=== PATIENT | female | born 1945 | race African-American/Black ===

== ENCOUNTER 2017-12-13 07:15 | Emergency (ER) | payer MEDICARE, MEDICAID ==
[2017-12-13 07:49] LABS: #Basophils 0.1 thou/uL (0.0-0.2); #Lymphocytes 1.9 thou/uL (1.20-3.40); #Monocytes 0.3 thou/uL (0.11-0.59); #Neutrophils 2.8 thou/uL (1.40-6.50); %Basophils 2.8 % (0.0-1.0); %Eosinophils 0.2 % (0.0-10.0); %Lymphocytes 37.4 % (21.0-51.0); %Monocytes 5.6 % (0.0-10.0); Hemoglobin 11.4 g/dL (12.0-16.0); Mean Corpuscular HGB CONC 33.1 g/dL (32.0-36.0); Mean Corpuscular Hemoglobin 30.5 pg (27.0-31.0); Mean Corpuscular Volume 92.3 fl (81.0-99.0); Mean Platelet Volume 8.2 fL (7.4-10.4); Platelet Count 159 thou/uL (130-400); RBC Distribution Width 12.5 % (11.5-14.5); Red Blood Cell (RBC) Count 3.72 mill/uL (4.20-5.40); White Blood Cell (WBC) Count 5.1 thou/uL (4.8-10.8)
--- NOTE | 2017-12-13 08:02 | RAD ---
SINGLE VIEW OF THE CHEST: COMPARISON: 03/15/14. HISTORY: Cough. FINDINGS: Single view of the chest shows a normal sized cardiomediastinal silhouette. There is no evidence of c onsolidation, mass, or pleural effusion. The bones are unremarkable. IMPRESSION: No evidence of acute cardiopulmonary disease. POS: [facility]
[2017-12-13 08:10] LABS: Anion Gap 14 mmol/L (10-20); BUN (Urea Nitrogen) 14 mg/dL (9.8-20.1); CK (CPK) 433 U/L (29-168); Calc. Creatinine Clearance 0 mL/min (70-130); Calcium 8.4 mg/dL (7.8-10.44); Carbon Dioxide 20 mmol/L (23-31); Chloride 105 mmol/L (98-107); Estimated GFR-MDRD 40; Glucose 81 mg/dL (83-110); Lipase 45 U/L (8-78); Potassium 3.9 mmol/L (3.5-5.1); Sodium 135 mmol/L (136-145)
[2017-12-13 08:13] LABS: CKMB 0.9 ng/mL (0-6.6); Troponin I 0.011 ng/mL (< 0.028)
[2017-12-13] MEDS ORDERED: Acetaminophen 500 MG TAB ONE (08:44)
[2017-12-13 09:16] LABS: Bilirubin Moderate (Negative); Blood, Urine Negative (Negative); Clarity CLOUDY (Clear); Glucose, Urine (Dipstick) Negative (Negative); Leukocyte Negative (Negative); Nitrite Negative (Negative); Protein, Urine (Dipstick) 30 mg/dL (Neg-Trace); Specific Gravity, Urine 1.021 (1.002-1.036); Urobilinogen 0.2 mg/dL (0.2-1.0)
[2017-12-13 09:18] LABS: Bacteria/HPF None Seen HPF (None Seen)
[2017-12-13 09:33] LABS: Hyaline Casts/LPF 7-10 HYALINE CAST LPF (0-3 Hyaline); Pathc Cast-AUWi Flag 14.77 (0-2.49); RBC/HPF 0-3 HPF (0-3); Renal Epithelial 0-3 HPF (0-3); Transitional Epithelial 0-3 HPF (0-3)
[2017-12-13 09:34] LABS: Other Casts/LPF 4-6 WBC CASTS LPF (0-3 Hyaline)
== END 2017-12-13 11:55 | disposition home or self-care (01) ==
LOC: ERS 07:15
DX: M79.1 Myalgia (principal); I25.10 Atherosclerotic heart disease of native coronary artery without angina pectoris; E78.5 Hyperlipidemia, unspecified; I10 Essential (primary) hypertension; F17.210 Nicotine dependence, cigarettes, uncomplicated; Z79.899 Other long term (current) drug therapy; Z79.82 Long term (current) use of aspirin
CPT/HCPCS: 36415; 51701; 71045; 80048; 81003; 81015; 82550; 82553; 83690; 84484; 85025; 87086; 93005; 96360; 96361; A4353

== ENCOUNTER 2017-12-19 05:46 | Emergency (ER) | payer MEDICARE, MEDICAID ==
[2017-12-19] MEDS ORDERED: Ketorolac Tromethamine 60 MG/2 ML VIAL ONE (06:15)
== END 2017-12-19 07:29 | disposition home or self-care (01) ==
LOC: ERS 05:46
DX: G89.29 Other chronic pain (principal); M54.2 Cervicalgia; I25.10 Atherosclerotic heart disease of native coronary artery without angina pectoris; E78.5 Hyperlipidemia, unspecified; I10 Essential (primary) hypertension; F17.210 Nicotine dependence, cigarettes, uncomplicated; Z79.82 Long term (current) use of aspirin; Z79.899 Other long term (current) drug therapy
CPT/HCPCS: 96372; J1885

== ENCOUNTER 2018-01-31 08:11 | Emergency (ER) | payer MEDICARE, MEDICAID ==
[2018-01-31] MEDS ORDERED: Morphine 4 MG/ML VIAL ONE ×2 (08:46→10:13)
[2018-01-31] MEDS ORDERED: Ondansetron HCl/PF 4 MG/2 ML Vial ONE ×2 (08:47→10:13)
[2018-01-31 10:09] LABS: #Basophils 0.1 thou/uL (0.0-0.2); #Lymphocytes 2.1 thou/uL (1.20-3.40); #Monocytes 0.4 thou/uL (0.11-0.59); #Neutrophils 5.5 thou/uL (1.40-6.50); %Basophils 0.6 % (0.0-1.0); %Eosinophils 0.2 % (0.0-10.0); %Lymphocytes 25.8 % (21.0-51.0); %Monocytes 4.5 % (0.0-10.0); %Neutrophils 68.8 % (42.0-75.0); Hemoglobin 12.2 g/dL (12.0-16.0); Mean Corpuscular HGB CONC 33.2 g/dL (32.0-36.0); Mean Corpuscular Hemoglobin 30.2 pg (27.0-31.0); Mean Corpuscular Volume 90.8 fl (81.0-99.0); Mean Platelet Volume 8.1 fL (7.4-10.4); Platelet Count 200 thou/uL (130-400); RBC Distribution Width 13.8 % (11.5-14.5); Red Blood Cell (RBC) Count 4.05 mill/uL (4.20-5.40)
[2018-01-31 10:28] LABS: CKMB 0.2 ng/mL (0-6.6)
--- NOTE | 2018-01-31 10:40 | RAD ---
RIGHT SHOULDER: Date: 01/31/18 PROVIDED CLINICAL HISTORY: Right shoulder pain. FINDINGS: Comparison with 10/15/14. Acromioclavicular joint osteoarthrosis is noted. There is no evidence for fracture or other acute oss eous abnormality. Subacromial space appears preserved. Visualized right lung field appears clear. IMPRESSION: Acromioclavicular joint osteoarthrosis. POS: [facility]
[2018-01-31 10:44] LABS: Troponin I Less than 0.010 ng/mL (< 0.028)
[2018-01-31 10:48] LABS: ALT (SGPT) 16 U/L (8-55); AST (SGOT) 33 U/L (5-34); Albumin 4.1 g/dL (3.4-4.8); Alkaline Phosphatase 83 U/L (40-150); Anion Gap 18 mmol/L (10-20); BUN (Urea Nitrogen) 6 mg/dL (9.8-20.1); CK (CPK) 51 U/L (29-168); Calc. Creatinine Clearance 0 mL/min (70-130); Calcium 9.2 mg/dL (7.8-10.44); Carbon Dioxide 22 mmol/L (23-31); Chloride 101 mmol/L (98-107); Estimated GFR-MDRD 64; Globulin 4.1 g/dL (2.4-3.5); Glucose 87 mg/dL (83-110); Potassium 4.1 mmol/L (3.5-5.1); Protein, Total 8.2 g/dL (6.0-8.3); Sodium 137 mmol/L (136-145)
--- NOTE | 2018-01-31 10:53 | RAD ---
PORTABLE CHEST: Date: 01/31/18 CLINICAL HISTORY: Fever. FINDINGS: Comparison with 12/13/17. The cardiac and mediastinal silhouette is within normal limits. No focal consolidation, pleural fluid , or pneumothorax apparent. The supine nature of the examination limits sensitivity for detection of pleural fluid or pneumothorax. IMPRESSION: No evidence for an acute cardiopulmonary process. POS: [facility]
[2018-01-31] MEDS ORDERED: Water For Inject, Bacteriostat 30 ML ONE (11:07)
[2018-01-31] MEDS ORDERED: methylPREDNISolone Sod Succ/PF 125 MG/2 ML VIAL ONE (11:07)
[2018-01-31] MEDS ORDERED: Ketorolac Tromethamine 30 MG/ML VIAL ONE (11:15)
== END 2018-01-31 11:23 | disposition home or self-care (01) ==
LOC: ERS 08:11
DX: M19.011 Primary osteoarthritis, right shoulder (principal); I25.10 Atherosclerotic heart disease of native coronary artery without angina pectoris; E87.5 Hyperkalemia; I25.2 Old myocardial infarction; I10 Essential (primary) hypertension; F17.210 Nicotine dependence, cigarettes, uncomplicated
CPT/HCPCS: 71045; 80053; 82553; 83605; 84484; 85025; 85652; 86140; 87040; 93005; 96361; 96372; 96374; 96375; 99406; J1885; J2270; J2405; J2930

== ENCOUNTER 2018-02-24 13:52 | Emergency (ER) | payer MEDICARE, MEDICAID ==
[2018-02-24 15:01] LABS: #Basophils 0.1 thou/uL (0.0-0.2); #Lymphocytes 1.5 thou/uL (1.20-3.40); #Monocytes 0.4 thou/uL (0.11-0.59); %Basophils 1.9 % (0.0-1.0); %Eosinophils 0.6 % (0.0-10.0); %Monocytes 7.3 % (0.0-10.0); %Neutrophils 60.2 % (42.0-75.0); Hemoglobin 10.2 g/dL (12.0-16.0); Mean Corpuscular HGB CONC 32.2 g/dL (32.0-36.0); Mean Corpuscular Hemoglobin 29.1 pg (27.0-31.0); Mean Corpuscular Volume 90.6 fl (81.0-99.0); Mean Platelet Volume 8.1 fL (7.4-10.4); Platelet Count 307 thou/uL (130-400); RBC Distribution Width 14.4 % (11.5-14.5); Red Blood Cell (RBC) Count 3.52 mill/uL (4.20-5.40)
[2018-02-24 15:07] LABS: Bilirubin Negative (Negative); Blood, Urine Negative (Negative); Clarity CLOUDY (Clear); Glucose, Urine (Dipstick) Negative (Negative); Leukocyte Negative (Negative); Nitrite Negative (Negative); Protein, Urine (Dipstick) Negative (Neg-Trace); Specific Gravity, Urine 1.006 (1.002-1.036); Urobilinogen 0.2 mg/dL (0.2-1.0); pH, Urine 6.5 (5.0-9.0)
[2018-02-24 15:22] LABS: ALT (SGPT) 19 U/L (8-55); AST (SGOT) 38 U/L (5-34); Albumin 3.8 g/dL (3.4-4.8); Alkaline Phosphatase 89 U/L (40-150); Anion Gap 15 mmol/L (10-20); BUN (Urea Nitrogen) 4 mg/dL (9.8-20.1); Calc. Creatinine Clearance 0 mL/min (70-130); Calcium 8.9 mg/dL (7.8-10.44); Carbon Dioxide 24 mmol/L (23-31); Chloride 103 mmol/L (98-107); Estimated GFR-MDRD 77; Globulin 3.7 g/dL (2.4-3.5); Glucose 97 mg/dL (83-110); Lipase 42 U/L (8-78); Potassium 3.8 mmol/L (3.5-5.1); Protein, Total 7.5 g/dL (6.0-8.3); Sodium 138 mmol/L (136-145)
[2018-02-24] MEDS ORDERED: Morphine 4 MG/ML VIAL ONE ×2 (16:40→17:16)
[2018-02-24] MEDS ORDERED: Ondansetron HCl/PF 4 MG/2 ML Vial ONE (16:41)
[2018-02-24 16:54] LABS: CKMB 0.2 ng/mL (0-6.6); Troponin I Less than 0.010 ng/mL (< 0.028)
--- NOTE | 2018-02-26 15:02 | EKG ---
Test Reason : Blood Pressure : / mmHG Vent. Rate : 074 BPM Atrial Rate : 078 BPM P-R Int : 000 ms QRS Dur : 084 ms QT Int : 392 ms P-R-T Axes : 000 -18 026 degrees QTc Int : 435 ms Accelerated Junctional rhythm Septal infarct , age undetermined Abnormal ECG Confirmed by KIMBERLY NIETO ([id number]), commissioning editor CARMENCITA AMOS ([id number]) on 02/26/2018 3:00:45 PM Referred By: Confirmed By:KIMBERLY NIETO
== END 2018-02-24 17:39 | disposition home or self-care (01) ==
LOC: ERS 13:52
DX: M54.2 Cervicalgia (principal); E86.0 Dehydration; M25.512 Pain in left shoulder; M25.511 Pain in right shoulder; E78.5 Hyperlipidemia, unspecified; F17.210 Nicotine dependence, cigarettes, uncomplicated; I10 Essential (primary) hypertension; I25.10 Atherosclerotic heart disease of native coronary artery without angina pectoris; I25.2 Old myocardial infarction; K21.9 Gastro-esophageal reflux disease without esophagitis
CPT/HCPCS: 36415; 80053; 81003; 82553; 83605; 83690; 84484; 85025; 93005; 96372; J2270; J2405

== ENCOUNTER 2018-05-25 18:11 | Observation (INO) | payer MEDICARE, MEDICAID ==
[2018-05-25 19:47] LABS: Bilirubin Small (Negative); Blood, Urine Negative (Negative); Clarity TURBID (Clear); Glucose, Urine (Dipstick) Negative (Negative); Leukocyte Trace (Negative); Nitrite Negative (Negative); Protein, Urine (Dipstick) Trace mg/dL (Neg-Trace); Specific Gravity, Urine 1.017 (1.002-1.036)
[2018-05-25 19:48] LABS: Bacteria/HPF None Seen HPF (None Seen); Pathc Cast-AUWi Flag 1.01 (0-2.49); RBC/HPF 0-3 HPF (0-3)
[2018-05-25 19:51] LABS: #Lymphocytes 1.9 thou/uL (1.20-3.40); #Monocytes 0.3 thou/uL (0.11-0.59); #Neutrophils 3.3 thou/uL (1.40-6.50); %Basophils 0.5 % (0.0-1.0); %Eosinophils 0.7 % (0.0-10.0); %Monocytes 5.3 % (0.0-10.0); %Neutrophils 59.5 % (42.0-75.0); Hemoglobin 10.2 g/dL (12.0-16.0); Mean Corpuscular Hemoglobin 29.2 pg (27.0-31.0); Mean Corpuscular Volume 85.9 fL (78.0-98.0); Mean Platelet Volume 7.5 fL (7.4-10.4); Platelet Count 228 thou/uL (130-400); RBC Distribution Width 15.1 % (11.5-14.5); White Blood Cell (WBC) Count 5.6 thou/uL (4.8-10.8)
[2018-05-25 20:13] LABS: ALT (SGPT) 9 U/L (8-55); AST (SGOT) 25 U/L (5-34); Albumin 3.4 g/dL (3.4-4.8); Alkaline Phosphatase 62 U/L (40-150); Anion Gap 10 mmol/L (10-20); BUN (Urea Nitrogen) 5 mg/dL (9.8-20.1); Bilirubin, Total 0.6 mg/dL (0.2-1.2); CK (CPK) 41 U/L (29-168); Calc. Creatinine Clearance 0 mL/min (70-130); Calcium 8.5 mg/dL (7.8-10.44); Carbon Dioxide 28 mmol/L (23-31); Chloride 102 mmol/L (98-107); Estimated GFR-MDRD 73; Globulin 3.1 g/dL (2.4-3.5); Glucose 92 mg/dL (83-110); Protein, Total 6.5 g/dL (6.0-8.3); Sodium 137 mmol/L (136-145)
[2018-05-25 20:18] LABS: Potassium 2.5 mmol/L (3.5-5.1)
[2018-05-25] MEDS ORDERED: Potassium Bicarbonate/Cit Ac 25 MEQ TAB ONE (20:31)
[2018-05-25] MEDS ORDERED: HYDROcodone/Acetaminophen 5/325 mg Tablet ONE (20:37)
--- NOTE | 2018-05-25 20:37 | RAD ---
CHEST ONE VIEW: HISTORY: Fever. COMPARISON: Chest radiograph from 01/31/2018. FINDINGS: Mild interstitial opacities in both lung bases with a developing alveolar component. Heart size is a t the upper limits of normal. No significant effusion. No pneumothorax. IMPRESSION: Bibasilar air space opacity with concern for a multifocal infectious process. POS: [facility]
[2018-05-25] MEDS ORDERED: Ondansetron HCl/PF 4 MG/2 ML Vial IVP PRN (23:43)
[2018-05-25] MEDS ORDERED: Acetaminophen 325 MG TAB PO PRN (23:43)
[2018-05-25] MEDS ORDERED: Ondansetron ODT 4 MG TAB SL PRN (23:43)
[2018-05-26] VITALS: BMI 23.5
[2018-05-26] MEDS: NS 0.9% w/ 40 MEQ KCL 1,000 ML IV SCH ×3 (00:47→10:34)
--- NOTE | 2018-05-26 06:02 | HP ---
CHIEF COMPLAINT: Left flank pain. HISTORY OF PRESENT ILLNESS: This patient is a 72-year-old female who [facility] of left flank pain. The patient had a mechanical fall that she experience d about 6 days ago. She is not sure why she fell at that time, but she hit the corner of a table in her left posterior rib and flank area. She has had some pain in that area. She reports that she thi nks that she was just getting weaker and to the point she just did not feel good and was too weak to even ambulate with her walker and she felt like she was stumbling. She typically is on a walker claudia use she has some chronic back pain. She denied any other associated problems. PAST MEDICAL HISTORY: Hypertension, chronic back pain, coronary artery disease with pretty significa nt multivessel disease followed by Dr. Levi. Hyperlipidemia. PAST SURGICAL HISTORY: Hysterectomy, , coronary stent. FAMILY HISTORY: Mother of cancer. SOCIAL HISTORY: The patient continues to smoke 1-2 cigarettes per day and has smoked up to a pack a day in the past. She denies alcohol, drugs or being . REVIEW OF SYSTEMS: She has some decreased hearing in the left ear and she reports some decreased tas te sensation. She also reports some loose stools since she has not been feeling well. She does have some urinary urgency and frequency. She also reports some dry skin rash, specifically it is primari ly affecting her hands and was affecting her navel area. She also reports some generalized anxiety. ALLERGIES: PENICILLIN which causes a rash. CURRENT MEDICATIONS: Aspirin 81 mg every day, Dowell 10/325 one p.o. t.i.d. p.r.n., Coreg 3.125 one p .o. b.i.d., atorvastatin 20 mg at bedtime, Protonix 40 mg every day. Lisinopril 10 mg every day, Nor vasc 10 mg p.o. daily. PHYSICAL EXAMINATION: VITAL SIGNS: Temperature 97.6, pulse 66, respirations 18, O2 sat 97% on room air, BP 109/53. GENERAL APPEARANCE: Age appropriate female in no distress. She is awake, alert, oriented, very plea florentino, cooperative. HEENT: PERRL. No OP lesions. NECK: Supple and symmetric. CARDIOVASCULAR: Regular rate and rhythm without murmurs, gallops or rubs. CHEST: Lungs are clear to auscultation bilaterally with good chest wall expansion, air exchange. ABDOMEN: Soft, nontender, nondistended with positive bowel sounds. MUSCULOSKELETAL: Extremities are warm and dry with no edema. She does have some ecchymoses in the l eft flank area about 8 cm. This area is very tender to palpation. LABORATORY DATA: White blood cell count 5.6, hemoglobin 10.2, platelets 228. Sodium 137, potassium 2.5, chloride 102, CO2 is 28, BUN 5, creatinine 0.92, glucose 92. Lactic acid 0.8, calcium 8.5, tota l bilirubin 0.6, AST 25, ALT 9, alkaline phosphatase 62. Urinalysis; small bilirubin, trace leukocyt e esterase, 4-6 white cells, 0-3 red cells. Chest x-ray bibasilar airspace opacities concerning for multifocal infectious process. ASSESSMENT AND PLAN: 1. Hypokalemia. The patient had significant hypokalemia with a potassium of 2.5. She has been rece iving some repletion. We will recheck those promptly. 2. Fall injury with left flank contusion. We will obtain a physical therapy consult. We will get s ome dedicated left rib series x-rays. 3. Possible urinary tract infection. Evidence is fairly equivocal, although she is reporting some u rinary frequency and urgency. Therefore, it sounds like this may be symptomatic. She has been recei ving Levaquin. We will continue that. 4. Abnormal chest x-ray concerning for the possibility of pneumonia. The patient has a negative or a normal white blood cell count and has yet to demonstrate fevers; however, she has been feeling poor ly for the past several days and it is concerning that she may be developing some pneumonia simply fr om not breathing deeply because of the rib injury. Should be covered with Levaquin. We will add inc entive spirometry as well. 5. Disposition: The patient reports that she would like her daughter, Toña Conteh, to be her luís rogate decision maker and she is a [employer]. 6. History of significant coronary artery disease. Continue with the Coreg and aspirin. 7. Hypertension. Continue Norvasc and lisinopril. 8. Hyperlipidemia. Continue the atorvastatin.
[2018-05-26 06:23] LABS: Anion Gap 11 mmol/L (10-20); BUN (Urea Nitrogen) 7 mg/dL (9.8-20.1); Calc. Creatinine Clearance 60 mL/min (70-130); Calcium 8.1 mg/dL (7.8-10.44); Carbon Dioxide 26 mmol/L (23-31); Chloride 105 mmol/L (98-107); Estimated GFR-MDRD 74; Glucose 86 mg/dL (83-110); Potassium 3.8 mmol/L (3.5-5.1); Sodium 138 mmol/L (136-145)
[2018-05-26] MEDS ORDERED: Potassium Chloride 20 MEQ TAB PO SCH (08:00)
[2018-05-26 08:41] LABS: Potassium 4.1 mmol/L (3.5-5.1)
[2018-05-26] MEDS: Carvedilol 3.125 MG TAB PO SCH ×2 (09:22→20:26)
[2018-05-26] MEDS: Amlodipine 10 MG TAB PO SCH (09:23)
[2018-05-26] MEDS: Lisinopril 20 MG TAB PO SCH (09:23)
[2018-05-26] MEDS: Aspirin 81 mg Enteric Coated Tablet PO SCH (09:23)
[2018-05-26] MEDS: HYDROcodone/Acetaminophen 10/325 mg Tablet PO PRN ×2 (11:40→21:03)
[2018-05-26] MEDS ORDERED: Eucerin (Mineral Oil/Petrolatum,White) 30 gm Jar TOP PRN (12:23)
--- NOTE | 2018-05-26 12:28 | PDOC.EVN ---
Event Note - Event Note Event Note: pt seen & examined h&P reviewed pt c/o diarrhea xseveral days and progressive weakness also c/o yellowish coating on tongue which just occurred yesterday c/o generalized prurities on b/l palms of hands and surrounding naval along with some pain where she fell and hit her hip several days ago exam: thrush noted on tongue, no posterior oropharyngeal erythema or exudate b/l dry skin on hands no erythema or changes other than scratches surrounding navel noted 2in by 1in area of bruising over L hip A/P diarrhea check c diff likly etiology of hypokalemia hypokalemia resolved d/c NS w/ K, d/c oral K, recheck in AM, continue to closely monitor pruritis topical skin cream thrush nystatin swish and swallow s/p mechanical fall PT c/s lidocaine patch closely monitor pain and mobility diet: as verónica activity: as above dvt ppx
[2018-05-26] MEDS ORDERED: Lidocaine 5% Patch TD SCH (13:30)
[2018-05-26] MEDS: Nystatin 500,000 UNITS/5 ML UDCUP SSW SCH ×3 (13:35→20:26)
[2018-05-26] MEDS ORDERED: Loperamide HCl 2 MG CAP PO PRN (16:48)
[2018-05-26] MEDS ORDERED: Atorvastatin Calcium 20 MG TAB PO SCH (21:00)
[2018-05-27 04:12] VITALS: TEMP 98.3
[2018-05-27 05:13] LABS: ALT (SGPT) 9 U/L (8-55); AST (SGOT) 22 U/L (5-34); Albumin 3.4 g/dL (3.4-4.8); Alkaline Phosphatase 64 U/L (40-150); Anion Gap 11 mmol/L (10-20); BUN (Urea Nitrogen) 6 mg/dL (9.8-20.1); Bilirubin, Total 0.3 mg/dL (0.2-1.2); Calc. Creatinine Clearance 63 mL/min (70-130); Calcium 8.3 mg/dL (7.8-10.44); Carbon Dioxide 25 mmol/L (23-31); Chloride 108 mmol/L (98-107); Estimated GFR-MDRD 76; Globulin 3.1 g/dL (2.4-3.5); Glucose 85 mg/dL (83-110); Potassium 3.6 mmol/L (3.5-5.1); Protein, Total 6.5 g/dL (6.0-8.3); Sodium 140 mmol/L (136-145)
[2018-05-27 05:14] LABS: Band 1 % (5-11); Eosinophils 3 % (0-10); Hemoglobin 9.8 g/dL (12.0-16.0); Lymphocytes 70 % (21-51); MDiff Complete? YES; Mean Corpuscular HGB CONC 33.6 g/dL (32.0-36.0); Mean Corpuscular Hemoglobin 29.6 pg (27.0-31.0); Mean Corpuscular Volume 88.1 fL (78.0-98.0); Mean Platelet Volume 8.1 fL (7.4-10.4); Monocytes 2 % (0-10); Neutrophil 24 % (42-75); PLT Morphology Comment Appears Adequate; Platelet Count 205 thou/uL (130-400); RBC Distribution Width 15.3 % (11.5-14.5); White Blood Cell (WBC) Count 3.5 thou/uL (4.8-10.8)
[2018-05-27] MEDS: Aspirin 81 mg Enteric Coated Tablet PO SCH (07:36)
[2018-05-27] MEDS: Amlodipine 10 MG TAB PO SCH (07:36)
[2018-05-27] MEDS: Lisinopril 20 MG TAB PO SCH (07:36)
[2018-05-27] MEDS: Carvedilol 3.125 MG TAB PO SCH (07:36)
[2018-05-27] MEDS: Nystatin 500,000 UNITS/5 ML UDCUP SSW SCH (07:37)
[2018-05-27 08:08] VITALS: BP 139/65
[2018-05-27] MEDS ORDERED: Lidocaine 5% Patch TD SCH (09:00)
[2018-05-27] MEDS ORDERED: Lidocaine Patch Removal 1 EACH TOP SCH (21:00)
== END 2018-05-27 12:02 | disposition home or self-care (01) ==
LOC: ERS 18:11 → 2SW 22:09
PROVIDERS: ADMIT Internal Medicine; ATTEND Internal Medicine
DX: R10.9 Unspecified abdominal pain (principal); S30.1XXA Contusion of abdominal wall, initial encounter; I10 Essential (primary) hypertension; G89.29 Other chronic pain; M54.9 Dorsalgia, unspecified; I25.10 Atherosclerotic heart disease of native coronary artery without angina pectoris; E78.5 Hyperlipidemia, unspecified; F17.210 Nicotine dependence, cigarettes, uncomplicated; E87.6 Hypokalemia; B37.0 Candidal stomatitis; Z95.5 Presence of coronary angioplasty implant and graft; Z88.0 Allergy status to penicillin; Z79.82 Long term (current) use of aspirin; Z79.899 Other long term (current) drug therapy; W01.190A Fall on same level from slipping, tripping and stumbling with subsequent striking against furniture, initial encounter
CPT/HCPCS: 71045; 80048; 80053 ×2; 82550; 83605; 84132; 85025 ×2; 87086; 87324; 87449; 93005; 96365; 96366; 97116; 97139 ×3; 99285; G0378; G8978; G8979; G8980; 36415; 81003; 81015; A4216

== ENCOUNTER 2018-06-06 12:06 | Emergency (ER) | payer MEDICARE, MEDICAID ==
[2018-06-06 12:48] LABS: #Basophils 0.1 thou/uL (0.0-0.2); #Eosinphils 0.1 thou/uL (0.0-0.7); #Lymphocytes 2.1 thou/uL (1.20-3.40); #Monocytes 0.3 thou/uL (0.11-0.59); %Basophils 1.2 % (0.0-1.0); %Eosinophils 1.2 % (0.0-10.0); %Lymphocytes 37.9 % (21.0-51.0); %Neutrophils 54.8 % (42.0-75.0); Hemoglobin 12.1 g/dL (12.0-16.0); Mean Corpuscular HGB CONC 33.5 g/dL (32.0-36.0); Mean Corpuscular Hemoglobin 29.2 pg (27.0-31.0); Mean Corpuscular Volume 87.4 fL (78.0-98.0); Mean Platelet Volume 8.5 fL (7.4-10.4); Platelet Count 222 thou/uL (130-400); Red Blood Cell (RBC) Count 4.13 mill/uL (4.20-5.40); White Blood Cell (WBC) Count 5.5 thou/uL (4.8-10.8)
[2018-06-06 12:54] LABS: ALT (SGPT) 10 U/L (8-55); AST (SGOT) 24 U/L (5-34); Alkaline Phosphatase 78 U/L (40-150); Anion Gap 13 mmol/L (10-20); BUN (Urea Nitrogen) 7 mg/dL (9.8-20.1); Bilirubin, Total 0.7 mg/dL (0.2-1.2); Calc. Creatinine Clearance 0 mL/min (70-130); Calcium 9.4 mg/dL (7.8-10.44); Carbon Dioxide 26 mmol/L (23-31); Chloride 106 mmol/L (98-107); Estimated GFR-MDRD 70; Glucose 89 mg/dL (83-110); Magnesium 2.1 mg/dL (1.6-2.6); Potassium 3.3 mmol/L (3.5-5.1); Sodium 142 mmol/L (136-145)
[2018-06-06 12:58] LABS: CKMB 0.2 ng/mL (0-6.6); Troponin I Less than 0.010 ng/mL (< 0.028)
[2018-06-06] MEDS ORDERED: Acetaminophen 500 MG TAB ONE (13:09)
[2018-06-06] MEDS ORDERED: Morphine 4 MG/ML VIAL ONE (13:44)
[2018-06-06] MEDS ORDERED: Potassium Bicarbonate/Cit Ac 25 MEQ TAB PO SCH (13:45)
[2018-06-06] MEDS ORDERED: Ondansetron ODT 4 MG TAB ONE (14:03)
[2018-06-06 14:05] LABS: Bilirubin Small (Negative); Blood, Urine Negative (Negative); Clarity CLOUDY (Clear); Glucose, Urine (Dipstick) Negative (Negative); Leukocyte Trace (Negative); Nitrite Negative (Negative); Protein, Urine (Dipstick) 30 mg/dL (Neg-Trace); Specific Gravity, Urine 1.022 (1.002-1.036)
[2018-06-06 14:07] LABS: Bacteria/HPF None Seen HPF (None Seen); Pathc Cast-AUWi Flag 1.01 (0-2.49)
[2018-06-06 14:17] LABS: Crystals/HPF None Seen HPF (Negative); Other Casts/LPF None Seen LPF (0-3 Hyaline); Oval Fat Bodies/HPF None Seen HPF (None Seen); RBC/HPF 0-3 HPF (0-3); Renal Epithelial None Seen HPF (0-3); Transitional Epithelial NONE SEEN HPF (0-3)
--- NOTE | 2018-06-06 14:29 | CT ---
CHEST CT SCAN WITHOUT IV CONTRAST: Date; 06/06/18 HISTORY: 72-year-old female with history of left lower abdominal rib pain after a fall. FINDINGS: There are scattered bullous emphysema changes, as well as honeycomb pattern bilaterally, evidence for nonspecific chronic interstitial lung disease. No evidence for pleural effusion or pneumothorax. Non displaced fractures of the left 12th and 11th posterior ribs. Visualized upper abdomen is unremarkabl e. Mediastinum is unremarkable with some atherosclerotic changes of the aorta and extensive three ves judith coronary artery calcific changes. There are some borderline enlarged pretracheal nodes up to 0.8 cm short axis. IMPRESSION: Nondisplaced fractures of the left posterior 11th and 12th ribs without pneumothorax or pleural effus ion. Evidence for nonspecific chronic interstitial lung disease with extensive honeycombing bilateral ly. Borderline size paratracheal and pretracheal lymph nodes. Atherosclerosis of the aorta with three vessel coronary artery calcific disease. POS: [facility]
== END 2018-06-06 15:48 | disposition home or self-care (01) ==
LOC: ERS 12:06
DX: S22.32XA Fracture of one rib, left side, initial encounter for closed fracture (principal); I25.2 Old myocardial infarction; E78.5 Hyperlipidemia, unspecified; Z79.891 Long term (current) use of opiate analgesic; Z79.899 Other long term (current) drug therapy; W19.XXXA Unspecified fall, initial encounter
CPT/HCPCS: 71250; 80053; 81003; 81015; 82553; 83735; 84484; 85025; 93005; 96374; J2270; Q0162

== ENCOUNTER 2018-06-08 12:19 | Emergency (ER) | payer MEDICARE, MEDICAID ==
[2018-06-08] MEDS ORDERED: Ketorolac Tromethamine 30 MG/ML VIAL ONE (14:23)
== END 2018-06-08 14:55 | disposition home or self-care (01) ==
LOC: ERS 12:19
DX: S22.42XA Multiple fractures of ribs, left side, initial encounter for closed fracture (principal); K21.9 Gastro-esophageal reflux disease without esophagitis; I10 Essential (primary) hypertension; I25.10 Atherosclerotic heart disease of native coronary artery without angina pectoris; E78.5 Hyperlipidemia, unspecified; I25.2 Old myocardial infarction; G89.29 Other chronic pain; F17.210 Nicotine dependence, cigarettes, uncomplicated; Z79.899 Other long term (current) drug therapy; Z79.82 Long term (current) use of aspirin; W07.XXXA Fall from chair, initial encounter
CPT/HCPCS: 96372; J1885

== ENCOUNTER 2018-06-18 09:01 | Emergency (ER) | payer MEDICARE, MEDICAID ==
[2018-06-18 09:48] LABS: #Basophils 0.1 thou/uL (0.0-0.2); #Lymphocytes 2.1 thou/uL (1.20-3.40); #Monocytes 0.4 thou/uL (0.11-0.59); #Neutrophils 3.2 thou/uL (1.40-6.50); %Basophils 1.3 % (0.0-1.0); %Eosinophils 0.8 % (0.0-10.0); %Lymphocytes 35.4 % (21.0-51.0); %Monocytes 6.7 % (0.0-10.0); %Neutrophils 55.7 % (42.0-75.0); Hemoglobin 11.6 g/dL (12.0-16.0); Mean Corpuscular HGB CONC 33.7 g/dL (32.0-36.0); Mean Platelet Volume 8.4 fL (7.4-10.4); Platelet Count 224 thou/uL (130-400); RBC Distribution Width 15.1 % (11.5-14.5); Red Blood Cell (RBC) Count 3.99 mill/uL (4.20-5.40); White Blood Cell (WBC) Count 5.8 thou/uL (4.8-10.8)
[2018-06-18 10:13] LABS: ALT (SGPT) 11 U/L (8-55); AST (SGOT) 24 U/L (5-34); Albumin 4.1 g/dL (3.4-4.8); Alkaline Phosphatase 81 U/L (40-150); Anion Gap 12 mmol/L (10-20); BUN (Urea Nitrogen) 5 mg/dL (9.8-20.1); Bilirubin, Total 0.6 mg/dL (0.2-1.2); CK (CPK) 40 U/L (29-168); Calc. Creatinine Clearance 0 mL/min (70-130); Carbon Dioxide 26 mmol/L (23-31); Chloride 105 mmol/L (98-107); Estimated GFR-MDRD 74; Globulin 3.9 g/dL (2.4-3.5); Glucose 86 mg/dL (83-110); Lipase 24 U/L (8-78); Potassium 3.3 mmol/L (3.5-5.1); Sodium 140 mmol/L (136-145)
[2018-06-18 10:17] LABS: CKMB 0.2 ng/mL (0-6.6); Troponin I Less than 0.010 ng/mL (< 0.028)
[2018-06-18 11:00] LABS: Bilirubin Negative (Negative); Blood, Urine Negative (Negative); Clarity CLOUDY (Clear); Glucose, Urine (Dipstick) Negative (Negative); Leukocyte Negative (Negative); Nitrite Negative (Negative); Protein, Urine (Dipstick) Negative (Neg-Trace); Urobilinogen 0.2 mg/dL (0.2-1.0)
--- NOTE | 2018-06-18 11:03 | RAD ---
RIGHT HIP 2-3 VIEWS: HISTORY: Right-sided pain. Fall from wheelchair. COMPARISON: None. FINDINGS: No acute fracture or malalignment. The right obturator ring is intact. Femoral head and neck are in normal anatomic alignment. IMPRESSION: No displaced right-sided rib fracture. POS: [facility]
[2018-06-18] MEDS ORDERED: Ketorolac Tromethamine 30 MG/ML VIAL ONE (11:04)
--- NOTE | 2018-06-18 11:06 | RAD ---
RIGHT ANKLE 3 VIEWS: HISTORY: Fall. COMPARISON: None. FINDINGS: There are multiple calcified bodies of the anterior joint space. No acute displaced fracture or mary lignment. Old medial malleolar injury. IMPRESSION: 1. 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 2. No acute displaced fracture or malalignment. 3. Evidence of old medial ankle injury. POS: [facility]
--- NOTE | 2018-06-18 11:22 | RAD ---
RIGHT RIBS 2 VIEWS PA CHEST XRAY: HISTORY: Fall. Right-sided pain. COMPARISON: CT chest 06/06/18. FINDINGS: Left posterior 11th and 12th rib fractures not well delineated on today's exam. No displaced right-s ided rib fracture is appreciated. No pneumothorax or effusion. Right upper quadrant surgical clips. IMPRESSION: 1. No displaced right-sided rib fracture. 2. Clear lungs. POS: [facility]
[2018-06-18] MEDS ORDERED: Dexamethasone 4 mg/ml Vial ONE (11:24)
== END 2018-06-18 11:32 | disposition home or self-care (01) ==
LOC: ERS 09:01
DX: S93.401A Sprain of unspecified ligament of right ankle, initial encounter (principal); S70.01XA Contusion of right hip, initial encounter; S20.211A Contusion of right front wall of thorax, initial encounter; K21.9 Gastro-esophageal reflux disease without esophagitis; E78.5 Hyperlipidemia, unspecified; I25.2 Old myocardial infarction; F17.210 Nicotine dependence, cigarettes, uncomplicated; Z79.82 Long term (current) use of aspirin; Z79.899 Other long term (current) drug therapy; W05.0XXA Fall from non-moving wheelchair, initial encounter
CPT/HCPCS: 72170; 80053; 81003; 82550; 82553; 83690; 84443; 84484; 85025; 93005; 96374; 96375; J1100; J1885

== ENCOUNTER 2018-06-23 12:17 | Emergency (ER) | payer MEDICARE, MEDICAID ==
[2018-06-23] MEDS ORDERED: HYDROcodone/Acetaminophen 10/325 mg Tablet ONE (12:39)
--- NOTE | 2018-06-23 13:31 | RAD ---
RIGHT ANKLE 3 VIEWS: Date: 06/23/18 HISTORY: Patient fell 2 weeks ago. Pain. COMPARISON: 06/18/18. FINDINGS: No significant change. Multiple calcified bodies are again noted. Ankle mortise is intact. No signifi cant soft tissue swelling. No acute fractures. IMPRESSION: 1. Multiple calcified bodies in the anterior joint space due to synovial osteochondromatosis are aga in noted. 2. Remote injury to medial malleolus. POS: [facility]
--- NOTE | 2018-06-23 14:07 | RAD ---
THREE VIEWS RIGHT FOOT: Date: 06-23-18 Comparison: None. History: Right foot pain. FINDINGS: The fourth metatarsal is markedly foreshortened. There is no displaced fracture or evidence of disloc ation seen. There is enthesophyte formation at the insertion of the achilles' tendon. Multiple corticated calcified foci noted along the anterior aspect of the ankle joint on the lateral view suggesting multiple intraarticular loose bodies within the right ankle. No acute fracture or evidence of dislocation seen. 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 No acute fracture or evidence of dislocation seen. POS: [facility]
== END 2018-06-23 13:36 | disposition home or self-care (01) ==
LOC: ERS 12:17
DX: M25.571 Pain in right ankle and joints of right foot (principal); G89.29 Other chronic pain; K21.9 Gastro-esophageal reflux disease without esophagitis; I10 Essential (primary) hypertension; E78.5 Hyperlipidemia, unspecified; I25.2 Old myocardial infarction; F17.210 Nicotine dependence, cigarettes, uncomplicated; Z79.899 Other long term (current) drug therapy

== ENCOUNTER 2018-07-06 01:23 | Emergency (ER) | payer MEDICARE, OTHER ==
[2018-07-06 02:16] LABS: #Basophils 0.1 thou/uL (0.0-0.2); #Eosinphils 0.1 thou/uL (0.0-0.7); #Lymphocytes 2.6 thou/uL (1.20-3.40); #Monocytes 0.4 thou/uL (0.11-0.59); #Neutrophils 4.4 thou/uL (1.40-6.50); %Basophils 0.7 % (0.0-1.0); %Eosinophils 1.6 % (0.0-10.0); %Lymphocytes 34.3 % (21.0-51.0); %Monocytes 5.1 % (0.0-10.0); %Neutrophils 58.3 % (42.0-75.0); Hemoglobin 10.3 g/dL (12.0-16.0); Mean Corpuscular HGB CONC 35.3 g/dL (32.0-36.0); Mean Corpuscular Volume 87.8 fL (78.0-98.0); Mean Platelet Volume 8.4 fL (7.4-10.4); Platelet Count 183 thou/uL (130-400); RBC Distribution Width 15.9 % (11.5-14.5); Red Blood Cell (RBC) Count 3.32 mill/uL (4.20-5.40); White Blood Cell (WBC) Count 7.5 thou/uL (4.8-10.8)
[2018-07-06 02:24] LABS: Bilirubin Negative (Negative); Blood, Urine Negative (Negative); Clarity CLEAR (Clear); Glucose, Urine (Dipstick) Negative (Negative); Leukocyte Negative (Negative); Nitrite Negative (Negative); Protein, Urine (Dipstick) Negative (Neg-Trace); Specific Gravity, Urine 1.005 (1.002-1.036); pH, Urine 7.5 (5.0-9.0)
[2018-07-06 02:36] LABS: ALT (SGPT) 13 U/L (8-55); AST (SGOT) 18 U/L (5-34); Albumin 3.7 g/dL (3.4-4.8); Alkaline Phosphatase 73 U/L (40-150); Anion Gap 14 mmol/L (10-20); BUN (Urea Nitrogen) 11 mg/dL (9.8-20.1); Calc. Creatinine Clearance 0 mL/min (70-130); Calcium 9.1 mg/dL (7.8-10.44); Carbon Dioxide 29 mmol/L (23-31); Chloride 99 mmol/L (98-107); Estimated GFR-MDRD 68; Globulin 3.3 g/dL (2.4-3.5); Glucose 91 mg/dL (83-110); Sodium 139 mmol/L (136-145)
[2018-07-06 02:38] LABS: Potassium 2.9 mmol/L (3.5-5.1)
[2018-07-06] MEDS ORDERED: Potassium Chloride 20 MEQ TAB ONE (03:24)
--- NOTE | 2018-07-06 07:51 | RAD ---
PORTABLE CHEST 1 VIEW: DATE: 07/06/18. TIME: 2:15 a.m. HISTORY: Fever. FINDINGS: The heart size is normal. The lungs are expanded without lobar consolidation, pneumothoraces, or ple ural effusions. IMPRESSION: No acute process. POS: [facility]
--- NOTE | 2018-07-06 07:56 | RAD ---
RADIOGRAPH CHEST 1 VIEW: Date: 07/06/18. Time: 3:55 a.m. HISTORY: A 72-year-old female with fever. TECHNIQUE: This is a lateral view only. COMPARISON: 06/18/18, and the frontal view of 07/06/18 today. FINDINGS: The posterior costophrenic angles are sharp; there is no pleural effusion. No airspace density is id entified. Prominent interstitial markings. No cardiomegaly. IMPRESSION: No acute cardiopulmonary findings. VARUN [] POS: [facility]
== END 2018-07-06 05:43 | disposition home or self-care (01) ==
LOC: ERS 01:23
DX: J18.9 Pneumonia, unspecified organism (principal); E87.6 Hypokalemia; K21.9 Gastro-esophageal reflux disease without esophagitis; E78.5 Hyperlipidemia, unspecified; I10 Essential (primary) hypertension; I25.2 Old myocardial infarction; I25.10 Atherosclerotic heart disease of native coronary artery without angina pectoris; Z79.82 Long term (current) use of aspirin; Z79.899 Other long term (current) drug therapy
CPT/HCPCS: 36415; 71045; 80053; 81003; 83605; 85025

== ENCOUNTER 2018-07-23 01:35 | Emergency (ER) | payer MEDICARE, MEDICAID ==
[2018-07-23 02:20] LABS: Bilirubin Negative (Negative); Blood, Urine Negative (Negative); Clarity CLEAR (Clear); Glucose, Urine (Dipstick) Negative (Negative); Leukocyte Negative (Negative); Nitrite Negative (Negative); Protein, Urine (Dipstick) Negative (Neg-Trace); Specific Gravity, Urine 1.003 (1.002-1.036); Urobilinogen 0.2 mg/dL (0.2-1.0); pH, Urine 6.5 (5.0-9.0)
[2018-07-23 02:35] LABS: #Basophils 0.1 thou/uL (0.0-0.2); #Eosinphils 0.1 thou/uL (0.0-0.7); #Lymphocytes 2.2 thou/uL (1.20-3.40); #Monocytes 0.3 thou/uL (0.11-0.59); #Neutrophils 3.9 thou/uL (1.40-6.50); %Basophils 1.1 % (0.0-1.0); %Eosinophils 1.4 % (0.0-10.0); %Monocytes 4.6 % (0.0-10.0); %Neutrophils 59.8 % (42.0-75.0); Hemoglobin 10.5 g/dL (12.0-16.0); Mean Corpuscular HGB CONC 34.3 g/dL (32.0-36.0); Mean Corpuscular Hemoglobin 29.5 pg (27.0-31.0); Mean Corpuscular Volume 85.9 fL (78.0-98.0); Mean Platelet Volume 8.5 fL (7.4-10.4); Platelet Count 202 thou/uL (130-400); Red Blood Cell (RBC) Count 3.55 mill/uL (4.20-5.40); White Blood Cell (WBC) Count 6.5 thou/uL (4.8-10.8)
[2018-07-23 02:45] LABS: ALT (SGPT) 12 U/L (8-55); AST (SGOT) 24 U/L (5-34); Albumin 3.7 g/dL (3.4-4.8); Alkaline Phosphatase 89 U/L (40-150); Anion Gap 14 mmol/L (10-20); BUN (Urea Nitrogen) 9 mg/dL (9.8-20.1); Bilirubin, Total 0.5 mg/dL (0.2-1.2); Calc. Creatinine Clearance 0 mL/min (70-130); Calcium 8.7 mg/dL (7.8-10.44); Carbon Dioxide 25 mmol/L (23-31); Chloride 108 mmol/L (98-107); Estimated GFR-MDRD 75; Globulin 3.6 g/dL (2.4-3.5); Glucose 96 mg/dL (83-110); Protein, Total 7.3 g/dL (6.0-8.3); Sodium 144 mmol/L (136-145)
[2018-07-23 02:48] LABS: Potassium 2.5 mmol/L (3.5-5.1)
[2018-07-23] MEDS ORDERED: Ketorolac Tromethamine 30 MG/ML VIAL ONE (03:48)
[2018-07-23] MEDS ORDERED: Magnesium Sulfate 2 GM/100 ML BAG ONE (03:48)
[2018-07-23] MEDS ORDERED: Promethazine HCl 25 MG/ML VIAL ONE (03:48)
--- NOTE | 2018-07-23 07:59 | RAD ---
SINGLE VIEW OF THE CHEST: COMPARISON: 05/25/18. HISTORY: Pneumonitis and fever. FINDINGS: Single view of the chest shows a normal sized cardiomediastinal silhouette. There is no evidence of c onsolidation, mass, or pleural effusion. The bones are unremarkable. IMPRESSION: No evidence of acute cardiopulmonary disease. POS: [facility]
--- NOTE | 2018-07-25 19:59 | EKG ---
Test Reason : Blood Pressure : / mmHG Vent. Rate : 068 BPM Atrial Rate : 068 BPM P-R Int : 180 ms QRS Dur : 090 ms QT Int : 416 ms P-R-T Axes : 064 -27 032 degrees QTc Int : 442 ms Normal sinus rhythm Poor R wave progression Abnormal ECG Confirmed by CHEEL LIMON ([id number]), telegraph editor CARMENCITA AMOS ([id number]) on 07/25/2018 7:59:47 PM Referred By: Confirmed By:CHELE LIMON
== END 2018-07-23 04:56 | disposition home or self-care (01) ==
LOC: ERS 01:35
DX: J18.9 Pneumonia, unspecified organism (principal); E87.6 Hypokalemia; J32.9 Chronic sinusitis, unspecified; E78.5 Hyperlipidemia, unspecified; I25.2 Old myocardial infarction; I10 Essential (primary) hypertension; K21.9 Gastro-esophageal reflux disease without esophagitis; I25.10 Atherosclerotic heart disease of native coronary artery without angina pectoris; Z79.899 Other long term (current) drug therapy
CPT/HCPCS: 36415; 71045; 80053; 81003; 83735; 85025; 93005; 96365; 96368; 96375; J1885; J2550; J3475

== ENCOUNTER 2018-10-19 08:18 | Emergency (ER) | payer MEDICARE, MEDICAID ==
[2018-10-19 09:20] LABS: #Eosinphils 0.1 thou/uL (0.0-0.7); #Lymphocytes 2.3 thou/uL (1.20-3.40); #Monocytes 0.3 thou/uL (0.11-0.59); #Neutrophils 2.6 thou/uL (1.40-6.50); %Basophils 0.8 % (0.0-1.0); %Eosinophils 2.7 % (0.0-10.0); %Lymphocytes 42.1 % (21.0-51.0); %Monocytes 5.4 % (0.0-10.0); %Neutrophils 48.9 % (42.0-75.0); Hemoglobin 11.5 g/dL (12.0-16.0); Mean Corpuscular Hemoglobin 29.2 pg (27.0-31.0); Mean Corpuscular Volume 88.3 fL (78.0-98.0); Mean Platelet Volume 8.8 fL (7.4-10.4); Platelet Count 173 thou/uL (130-400); RBC Distribution Width 14.6 % (11.5-14.5); Red Blood Cell (RBC) Count 3.95 mill/uL (4.20-5.40); White Blood Cell (WBC) Count 5.4 thou/uL (4.8-10.8)
[2018-10-19 09:33] LABS: ALT (SGPT) 23 U/L (8-55); AST (SGOT) 32 U/L (5-34); Alkaline Phosphatase 104 U/L (40-150); Anion Gap 12 mmol/L (10-20); BUN (Urea Nitrogen) 7 mg/dL (9.8-20.1); Bilirubin, Total 1.3 mg/dL (0.2-1.2); Calc. Creatinine Clearance 0 mL/min (70-130); Calcium 9.3 mg/dL (7.8-10.44); Carbon Dioxide 30 mmol/L (23-31); Chloride 105 mmol/L (98-107); Estimated GFR-MDRD 82; Globulin 4.1 g/dL (2.4-3.5); Glucose 87 mg/dL (83-110); Lipase 27 U/L (8-78); Protein, Total 8.1 g/dL (6.0-8.3); Sodium 145 mmol/L (136-145)
[2018-10-19 09:37] LABS: Potassium 2.4 mmol/L (3.5-5.1)
[2018-10-19 09:48] LABS: Bilirubin Negative (Negative); Blood, Urine Negative (Negative); Clarity CLEAR (Clear); Glucose, Urine (Dipstick) Negative (Negative); Leukocyte Negative (Negative); Nitrite Negative (Negative); Protein, Urine (Dipstick) Negative (Neg-Trace); pH, Urine 6.5 (5.0-9.0)
[2018-10-19] MEDS ORDERED: Acetaminophen 500 MG TAB ONE (10:06)
== END 2018-10-19 10:14 | disposition home or self-care (01) ==
LOC: ERS 08:18
DX: R32 Unspecified urinary incontinence (principal); G89.29 Other chronic pain; E87.6 Hypokalemia; K21.9 Gastro-esophageal reflux disease without esophagitis; I10 Essential (primary) hypertension; I25.10 Atherosclerotic heart disease of native coronary artery without angina pectoris; E78.5 Hyperlipidemia, unspecified; I25.2 Old myocardial infarction; F17.210 Nicotine dependence, cigarettes, uncomplicated; Z79.82 Long term (current) use of aspirin; Z79.899 Other long term (current) drug therapy
CPT/HCPCS: 36415; 80053; 81003; 83690; 83735; 85025; 99284

== ENCOUNTER 2019-07-07 08:44 | Emergency (ER) | payer MEDICARE, MEDICAID ==
[2019-07-07] MEDS ORDERED: Ketorolac Tromethamine 30 MG/ML VIAL ONE (09:51)
== END 2019-07-07 10:00 | disposition home or self-care (01) ==
LOC: ERS 08:44
DX: M79.675 Pain in left toe(s) (principal); I10 Essential (primary) hypertension; I25.10 Atherosclerotic heart disease of native coronary artery without angina pectoris; E78.5 Hyperlipidemia, unspecified; I25.2 Old myocardial infarction; F17.210 Nicotine dependence, cigarettes, uncomplicated; K21.9 Gastro-esophageal reflux disease without esophagitis; Z79.899 Other long term (current) drug therapy; Z79.82 Long term (current) use of aspirin
CPT/HCPCS: 96372; 99281; J1885

== ENCOUNTER 2019-07-29 10:24 | Outpatient (CLI) | payer MEDICARE, MEDICAID ==
--- NOTE | 2019-07-29 15:45 | HP ---
HISTORY OF PRESENT ILLNESS: Ms. Debra Conteh is a 73-year-old accompanied by a friend who [facility] for evaluation of a wound of the left fifth toe. The patient states that she has had pain of her left fifth toe for approximately 6 months. She states that she had the toenail removed from the left first toe and the resulting wound was slow to heal. She states that another dial marker referred the patient to the [facility] for further evaluation and treatment. She states that the dial marker who removed the toenail from the left great toe, also removed the toenail from the left fifth toe or treated a wound in the region of the nailbed. The patient states she is not sure as to the exact nature of the treatment for her left fifth toe. The patient also received treatment for a wound of the left fifth toe by Dr. Camille Peterson. PAST MEDICAL HISTORY: 1. Coronary artery disease. 2. Hypertension. 3. History of headaches. 4. Chronic back pain. PAST SURGICAL HISTORY: 1. x3. 2. Hysterectomy. MEDICATIONS: 1. Atorvastatin. 2. Pantoprazole. 3. Lisinopril. 4. Amlodipine. 5. Coreg. 6. Potassium. 7. Aspirin. 8. Multivitamin. 9. Hydrocodone. ALLERGIES: PENICILLINS. SOCIAL HISTORY: Social history is significant for tobacco use on an intermittent basis for 10 to 20 years. The patient denies any history of EtOH use. FAMILY HISTORY: Family history is negative for diabetes mellitus or coronary artery disease. PHYSICAL EXAMINATION: VITAL SIGNS: Temperature 97.9, pulse 54, respirations 18, blood pressure 143/67. GENERAL: A 73-year-old female sitting on table in examination room, in mild to moderate distress. HEENT: Normocephalic, atraumatic. NECK: No nuchal rigidity. CHEST: Clear to auscultation. CV: Regular rate and rhythm. ABDOMEN: Soft. EXTREMITIES: No open wound is present over the dorsum of the left fifth toe at the site of her previous wound. No erythema of the left fifth toe is present. No edema of the left fifth toe is present on exam today. A dorsalis pedis pulse is palpable on the left. A posterior tibial pulse is not palpable on the left, but is audible by Doppler. NEURO: Grossly nonfocal. ASSESSMENT AND PLAN: 1. Ulceration of left fifth toe as stated above. This wound has healed completely. The patient reports percutaneous revascularization of the left lower extremity. The patient states she has a followup appointment later this month with Dr. Santoyo. The patient has been reassured that no open wound of the left fifth toe is still present. I have encouraged the patient to keep her followup appointment with Dr. Santoyo. I have explained to the patient that at this time, Dr. Santoyo may arrange for followup with the physician performing her percutaneous revascularization of the left lower extremity. Ms. Conteh will be discharged from clinic today with followup on a p.r.n. basis. 2. Coronary artery disease. 3. Hypertension. 4. History of headaches. 5. Chronic back pain. Job ID: [id number]
== END 2019-07-29 10:25 | disposition home or self-care (01) ==
LOC: WCC 10:24
PROVIDERS: ATTEND Family Medicine
DX: I25.10 Atherosclerotic heart disease of native coronary artery without angina pectoris (principal); I10 Essential (primary) hypertension; G89.29 Other chronic pain; M54.9 Dorsalgia, unspecified; R51 Headache
CPT/HCPCS: 97139; 97602; G0463; 99203

== ENCOUNTER 2019-08-21 10:50 | Emergency (ER) | payer MEDICARE, OTHER ==
[2019-08-21] MEDS ORDERED: Morphine 4 MG/ML VIAL ONE (12:09)
== END 2019-08-21 12:35 | disposition home or self-care (01) ==
LOC: ERS 10:50
DX: M79.675 Pain in left toe(s) (principal); K21.9 Gastro-esophageal reflux disease without esophagitis; F17.210 Nicotine dependence, cigarettes, uncomplicated; E78.5 Hyperlipidemia, unspecified; I10 Essential (primary) hypertension; I25.10 Atherosclerotic heart disease of native coronary artery without angina pectoris; I25.2 Old myocardial infarction; Z79.82 Long term (current) use of aspirin; Z79.899 Other long term (current) drug therapy
CPT/HCPCS: 96372; 99283; J2270

== ENCOUNTER 2019-08-23 08:05 | Emergency (ER) | payer MEDICARE, OTHER ==
[2019-08-23] MEDS ORDERED: HYDROcodone/Acetaminophen 5/325 mg Tablet ONE (09:38)
== END 2019-08-23 09:41 | disposition home or self-care (01) ==
LOC: ERS 08:05
DX: M79.675 Pain in left toe(s) (principal); G89.29 Other chronic pain; F17.210 Nicotine dependence, cigarettes, uncomplicated; E78.5 Hyperlipidemia, unspecified; K21.9 Gastro-esophageal reflux disease without esophagitis; I10 Essential (primary) hypertension; I25.2 Old myocardial infarction
CPT/HCPCS: 99283

== ENCOUNTER 2019-08-25 05:36 | Inpatient (IN) | payer MEDICARE, MEDICAID ==
[2019-08-25] MEDS ORDERED: Lidocaine 1% (PF) 30 ML VIAL ONE (06:31)
[2019-08-25 07:07] LABS: Hemoglobin 12.9 g/dL (12.0-16.0); Mean Corpuscular HGB CONC 34.7 g/dL (32.0-36.0); Mean Corpuscular Hemoglobin 31.7 pg (27.0-31.0); Mean Corpuscular Volume 91.4 fL (78.0-98.0); Mean Platelet Volume 8.5 fL (7.4-10.4); Platelet Count 183 thou/uL (130-400); RBC Distribution Width 12.2 % (11.5-14.5); Red Blood Cell (RBC) Count 4.06 mill/uL (4.20-5.40); White Blood Cell (WBC) Count 6.9 thou/uL (4.8-10.8)
[2019-08-25 07:21] LABS: Anion Gap 15 mmol/L (10-20); BUN (Urea Nitrogen) 12 mg/dL (9.8-20.1); Calc. Creatinine Clearance 0 mL/min (70-130); Calcium 9.7 mg/dL (7.8-10.44); Carbon Dioxide 22 mmol/L (23-31); Chloride 106 mmol/L (98-107); Estimated GFR-MDRD 53; Glucose 85 mg/dL (83-110); Potassium 4.5 mmol/L (3.5-5.1); Sodium 138 mmol/L (136-145)
[2019-08-25] MEDS ORDERED: Fentanyl 100 MCG/2 ML VIAL ONE ×2 (07:22→09:22)
[2019-08-25] MEDS ORDERED: Midazolam HCl 2 mg/2 ml Vial ONE (07:22)
[2019-08-25 07:41] LABS: Band 1 % (5-11); Eosinophils 4 % (0-10); Lymphocytes 58 % (21-51); MDiff Complete? YES; Monocytes 4 % (0-10); Neutrophil 31 % (42-75); Platelet Morphology Comment Appears Adequate; Polychromasia SLIGHT = 2-3 cells (100X) (0-2/hpf)
[2019-08-25] MEDS ORDERED: Heparin 10,000 UNITS/1 ML VIAL ONE (08:18)
[2019-08-25] MEDS ORDERED: Clopidogrel Bisulfate 75 MG TAB ONE (08:28)
[2019-08-25] MEDS ORDERED: Protamine Sulfate 50 MG/5 ML VIAL ONE (08:45)
[2019-08-25] MEDS ORDERED: HYDROcodone/Acetaminophen 5/325 mg Tablet ONE ×2 (12:56→17:40)
[2019-08-25] MEDS ORDERED: Acetaminophen 325 MG TAB PO PRN (19:45)
[2019-08-25] MEDS ORDERED: Ondansetron PF 4 MG/2 ML Vial IVP PRN (19:45)
[2019-08-25] MEDS ORDERED: HYDROcodone/Acetaminophen 5/325 mg Tablet PO PRN (19:45)
[2019-08-25] MEDS ORDERED: Iopamidol 370 76% 50 ML VIAL FS ONE (20:21)
[2019-08-25] MEDS: Atorvastatin Calcium 20 MG TAB PO SCH (20:53)
[2019-08-25] MEDS: Carvedilol 3.125 MG TAB PO SCH (20:53)
[2019-08-25] MEDS: HYDROcodone/Acetaminophen 5/325 mg Tablet PO PRN (22:11)
[2019-08-26 02:08] VITALS: BMI 25.0
[2019-08-26] MEDS: HYDROcodone/Acetaminophen 5/325 mg Tablet PO PRN ×3 (05:24→23:36)
[2019-08-26] MEDS ORDERED: Amlodipine 10 MG TAB PO SCH (09:00)
[2019-08-26] MEDS ORDERED: Bupivacaine HCl 0.5%/Epinephrine 1:200,000/PF 30 ml Vial ONE (09:06)
[2019-08-26] MEDS ORDERED: Ropivacaine 0.5% HCl/PF (150 MG/30 ML VIAL) ONE (09:43)
[2019-08-26] MEDS ORDERED: Midazolam HCl 2 mg/2 ml Vial ONE (10:01)
--- NOTE | 2019-08-26 10:03 | OP ---
DATE OF PROCEDURE: 08/25/2019 PREOPERATIVE DIAGNOSIS: Gangrene, left 5th toe. PROCEDURE PERFORMED: Aortoiliac and left lower extremity runoff with balloon angioplasty and subsequent placement of a synergy 3.5 x 16 mm stent, left popliteal artery. FINDINGS: The patient had extensive atherosclerotic calcifications in the aortoiliac segments with no limiting flow on the left leg. The patient did have some disease in the right external iliac artery , proximal right common femoral artery junction of 60%. The left common femoral artery was patent. The left superficial femoral artery was widely patent with some [id number] areas of narrowing. The left popliteal artery was critically stenotic in the 90% range just proximal to the knee joint with single-vessel runoff via the peroneal artery to the ankle with anterior and posterior artery, tibial arteries not visualizing on the left. no stenosis remained at site of stent placement in the popliteal artery. DESCRIPTION OF PROCEDURE: After ultrasound-guided puncture of the right common femoral artery, wire and a 5-Azeri sheath were advanced. Following this, angiography obtained and the combination of a Contra catheter, Glidewire and a Bentson wire were used to direct the Contra catheter into the left common femoral artery where runoff was obtained. Following this, using a Bentson wire, the sheaths were exchanged for a 5-Azeri long destination 45 cm sheath. A Luge wire was advanced through the stenosis with the help of a [place] catheter. Following which, a 3 x 40 balloon was used to inflate x2 for 2 minutes each. With residual disease , it was elected to place a 3.5 x 16 mm drug coated synergy stent. Following completion of this, there was excellent flow through this area with no residual stenosis and heparin was partially reversed and wires were removed. Job ID: [id number] [facility]
[2019-08-26] MEDS ORDERED: ePHEDrine 50 MG/ML VIAL ONE (10:05)
[2019-08-26] MEDS ORDERED: Clindamycin/D5W 900 mg/50 ml Premix Bag ONE (10:19)
[2019-08-26] MEDS ORDERED: Levofloxacin 500 mg/D5W 100 ml Premix Bag ONE (10:19)
[2019-08-26] MEDS ORDERED: Fentanyl 100 MCG/2 ML VIAL ONE (11:28)
[2019-08-26] MEDS ORDERED: Ibuprofen 800 MG TAB PO SCH (12:10)
--- NOTE | 2019-08-26 13:03 | OP ---
DATE OF PROCEDURE: 08/26/2019 PREOPERATIVE DIAGNOSIS: Painful ischemic left fifth toe. POSTOPERATIVE DIAGNOSIS: Painful ischemic left fifth toe. PROCEDURE PERFORMED: Amputation, left fifth toe. ANESTHESIA: General. DESCRIPTION OF PROCEDURE: After prepping and draping, circumferential incision was made around the base of the toe. It was transected sharply and bone debrided with a rongeur. Bleeding appeared adequate. Tissues were clean, and wound was then reapproximated with interrupted nylon sutures. The patient tolerated the procedure well. Job ID: [id number]
[2019-08-26] MEDS: Enoxaparin Sodium 30 MG/0.3 ML SYRINGE SC SCH (15:25)
[2019-08-26] MEDS: Carvedilol 3.125 MG TAB PO SCH ×2 (15:30→21:05)
[2019-08-26] MEDS: Aspirin 81 mg Enteric Coated Tablet PO SCH (15:30)
[2019-08-26] MEDS: Clopidogrel Bisulfate 75 MG TAB PO SCH (15:30)
[2019-08-26] MEDS: Multivitamin W/ Minerals 1 TAB PO SCH (15:30)
[2019-08-26] MEDS: Ibuprofen 200 MG TAB PO SCH ×2 (15:31→21:05)
[2019-08-26] MEDS: Lisinopril 20 MG TAB PO SCH (17:05)
[2019-08-26] MEDS: Amlodipine 5 MG TAB PO SCH (17:05)
[2019-08-26] MEDS: Atorvastatin Calcium 20 MG TAB PO SCH (21:05)
[2019-08-27] MEDS: HYDROcodone/Acetaminophen 5/325 mg Tablet PO PRN (04:16)
[2019-08-27] MEDS: Ibuprofen 200 MG TAB PO SCH (05:31)
[2019-08-27 07:36] VITALS: BP 118/52; TEMP 97.9
[2019-08-27] MEDS: Multivitamin W/ Minerals 1 TAB PO SCH (08:47)
[2019-08-27] MEDS: Clopidogrel Bisulfate 75 MG TAB PO SCH (08:47)
[2019-08-27] MEDS: Enoxaparin Sodium 30 MG/0.3 ML SYRINGE SC SCH (08:48)
[2019-08-27] MEDS: Aspirin 81 mg Enteric Coated Tablet PO SCH (08:48)
[2019-08-27] MEDS: Amlodipine 5 MG TAB PO SCH (08:51)
[2019-08-27] MEDS: Carvedilol 3.125 MG TAB PO SCH (08:52)
[2019-08-27] MEDS: Lisinopril 20 MG TAB PO SCH (08:52)
--- NOTE | 2019-08-27 14:35 | DIS ---
DATE OF ADMISSION: 08/25/2019 DATE OF DISCHARGE: 08/27/2019 HOSPITAL COURSE: The patient was brought to the hospital for angiography, where she was found to have a subtotal occlusion of her popliteal artery on the left, which was opened with a Synergy 3.5 mm stent. She was begun on Plavix. Due to persistent toe pain with some gangrenous changes, she was taken to the operating room the following morning, where she underwent a left 5th toe amputation. She will be discharged home today to resume her home medicines, although I have decreased her amlodipine from 10 to 5 mg. She will receive a prescription for Plavix and [place]. Discharge and followup instructions have been given. Job ID: [id number]
== END 2019-08-27 10:30 | disposition home or self-care (01) | DRG 253 ==
LOC: CCL 05:36 → SURG B 18:58
PROVIDERS: ADMIT Thoracic Surgery (Cardiothoracic Vascular Surgery); ATTEND Thoracic Surgery (Cardiothoracic Vascular Surgery)
PROC: 047N34Z Dilation of Left Popliteal Artery with Drug-eluting Intraluminal Device, Percutaneous Approach (ICD-10-PCS; 2019-08-25)
PROC: 0Y6Y0Z0 Detachment at Left 5th Toe, Complete, Open Approach (ICD-10-PCS; principal; 2019-08-26)
DX: I70.213 Atherosclerosis of native arteries of extremities with intermittent claudication, bilateral legs (principal); I70.262 Atherosclerosis of native arteries of extremities with gangrene, left leg; G89.29 Other chronic pain; F17.210 Nicotine dependence, cigarettes, uncomplicated; E78.5 Hyperlipidemia, unspecified; K21.9 Gastro-esophageal reflux disease without esophagitis; I10 Essential (primary) hypertension; I25.2 Old myocardial infarction
CPT/HCPCS: 36415; 37226; 75710; 76942; 80048; 85025; 85347; 88305; 88311; 99152; 99153; 99283; C1769; C1874; C1887; J0670; J1644; J1650; J1956; J2001; J2250; J2720; J3010; J3490; Q9967

== ENCOUNTER 2019-12-16 08:28 | Outpatient (CLI) | payer MEDICARE, MEDICAID ==
--- NOTE | 2019-12-16 10:44 | MMO ---
Bilateral MAMMO Bilat Screen [facility]. CLINICAL HISTORY: Patient is 73 years old and is seen for screening. The patient has no family history of breast cancer. The patient has no personal history of cancer. VIEWS: The views performed were: bilateral craniocaudal with tomosynthesis and bilateral mediolateral oblique with tomosynthesis. FILMS COMPARED: The present examination has been compared to prior imaging studies performed at [facility] on 12/24/2013, 12/28/2014 and 01/31/2016, and at [facility] on 10/10/2011. This study has been interpreted with the assistance of computer-aided detection. MAMMOGRAM FINDINGS: There are scattered fibroglandular densities. There are stable benign appearing calcifications seen in both breasts. There are no suspicious masses, suspicious calcifications, or new areas of architectural distortion. IMPRESSION: THERE IS NO MAMMOGRAPHIC EVIDENCE OF MALIGNANCY. A ROUTINE FOLLOW-UP MAMMOGRAM IN 1 YEAR IS RECOMMENDED. THE RESULTS OF THIS EXAM WERE SENT TO THE PATIENT. ACR BI-RADS Category 2 - Benign finding MAMMOGRAPHY NOTE: 1. A negative mammogram report should not delay a biopsy if a dominant of clinically suspicious mass is present. 2. Approximately 10% to 15% of breast cancers are not detected by mammography. 3. Adenosis and dense breasts may obscure an underlying neoplasm. Reported by: LORETTA CORMIER MD Electonically Signed: [id number]
== END 2019-12-16 08:29 | disposition home or self-care (01) ==
LOC: BICMAMMO 08:28
PROVIDERS: ATTEND Family Medicine
DX: Z12.31 Encounter for screening mammogram for malignant neoplasm of breast (principal)
CPT/HCPCS: 77063; 77067

== ENCOUNTER 2020-08-05 14:27 | Emergency (ER) | payer MEDICARE, OTHER ==
[2020-08-05] MEDS ORDERED: Iopamidol-370 76% 500 ML 1 ML ONE (14:43)
[2020-08-05 15:01] LABS: Bacteria/HPF None Seen HPF (None Seen); Bilirubin Negative (Negative); Blood, Urine Negative (Negative); Clarity Clear (Clear); Glucose, Urine (Dipstick) Normal (Negative); Ketone, Urine Negative (Negative); Leukocyte 250 Leu/uL (Negative); Nitrite Negative (Negative); Protein, Urine (Dipstick) Negative (Neg-Trace); RBC/HPF 0-3 HPF (0-3); Specific Gravity, Urine 1.004 (1.002-1.036); Squamous Epithelial 0-3 HPF (0-3); Urobilinogen Normal mg/dL (Less than 2); pH, Urine 6.5 (5.0-9.0)
[2020-08-05] MEDS ORDERED: Ondansetron PF 4 MG/2 ML Vial ONE (15:26)
[2020-08-05 16:34] LABS: Hemoglobin 14.9 g/dL (12.0-16.0); Mean Corpuscular HGB CONC 32.7 g/dL (32.0-36.0); Mean Corpuscular Volume 98.1 fL (78.0-98.0); Mean Platelet Volume 8.8 fL (7.4-10.4); Platelet Count 192 thou/uL (130-400); RBC Distribution Width 13.2 % (11.5-14.5); Red Blood Cell (RBC) Count 4.64 mill/uL (4.20-5.40); White Blood Cell (WBC) Count 6.6 thou/uL (4.8-10.8)
[2020-08-05 16:54] LABS: Band 6 % (5-11); Lymphocytes 66 % (21-51); MDiff Complete? YES; Monocytes 3 % (0-10); Platelet Morphology Comment Appears Adequate; Polychromasia SLIGHT = 2-3 cells (100X) (0-2/hpf)
[2020-08-05 18:15] LABS: ALT (SGPT) 12 U/L (8-55); AST (SGOT) 25 U/L (5-34); Albumin 4.2 g/dL (3.4-4.8); Alkaline Phosphatase 87 U/L (40-110); Anion Gap 14 mmol/L (10-20); BUN (Urea Nitrogen) 14 mg/dL (9.8-20.1); Bilirubin, Total 0.5 mg/dL (0.2-1.2); Calc. Creatinine Clearance 0 mL/min (70-130); Calcium 9.2 mg/dL (7.8-10.44); Carbon Dioxide 21 mmol/L (23-31); Chloride 110 mmol/L (98-107); Estimated GFR-MDRD 62; Globulin 3.7 g/dL (2.4-3.5); Glucose 90 mg/dL (83-110); Lipase 57 U/L (8-78); Potassium 4.1 mmol/L (3.5-5.1); Protein, Total 7.9 g/dL (6.0-8.3); Sodium 141 mmol/L (136-145)
--- NOTE | 2020-08-05 19:31 | CT ---
CT ABDOMEN AND PELVIS WITH IV CONTRAST: 08/05/20 INDICATIONS: Abdominal pain. Nausea and vomiting. FINDINGS: The lung bases are clear. The liver, spleen and pancreas appear unremarkable. Stomach and duodenum unremarkable. Adrenal glands normal. Kidneys unremarkable. Small bowel loops are normal caliber. Appendix not identified. The colon is nondistended and not well evaluated. I cannot exclude mild mural thickening. Aorta is calcified without aneurysm. Images through the pelvis show evidence of hysterectomy. The urinary bladder is mildly distended. The re is mild urinary bladder wall thickening. Scattered diverticula in the sigmoid colon. No free fluid or adenopathy. Osseous structures unremarkable. IMPRESSION: No acute intra-abdominal process identified. POS: [facility]
[2020-08-08 12:53] LABS: Neutrophil 25 % (42-75)
== END 2020-08-05 19:48 | disposition home or self-care (01) ==
LOC: ERS 14:27
DX: R10.9 Unspecified abdominal pain (principal); R19.7 Diarrhea, unspecified; K21.9 Gastro-esophageal reflux disease without esophagitis; I10 Essential (primary) hypertension; E78.5 Hyperlipidemia, unspecified; I25.10 Atherosclerotic heart disease of native coronary artery without angina pectoris; I25.2 Old myocardial infarction; F17.210 Nicotine dependence, cigarettes, uncomplicated
CPT/HCPCS: 36415; 74177; 80053; 81003; 81015; 83690; 85025; 96361; 96372; 96374; J0500; J2405; Q9967

== ENCOUNTER 2021-04-05 08:17 | Inpatient (IN) | payer MEDICARE, MEDICAID ==
[2021-04-05] MEDS ORDERED: Acetaminophen 500 MG TAB ONE (09:24)
[2021-04-05] MEDS ORDERED: Ketorolac Tromethamine 30 MG/ML VIAL ONE (09:24)
[2021-04-05 09:30] LABS: #Basophils 0.1 thou/uL (0.0-0.2); #Eosinphils 0.2 thou/uL (0.0-0.7); #Lymphocytes 3.2 thou/uL (1.20-3.40); #Monocytes 0.6 thou/uL (0.11-0.59); #Neutrophils 6.6 thou/uL (1.40-6.50); %Basophils 0.6 % (0.0-1.0); %Eosinophils 1.9 % (0.0-10.0); %Monocytes 5.7 % (0.0-10.0); %Neutrophils 61.8 % (42.0-75.0); Hemoglobin 13.6 g/dL (12.0-16.0); Mean Corpuscular HGB CONC 33.8 g/dL (32.0-36.0); Mean Corpuscular Hemoglobin 31.7 pg (27.0-31.0); Mean Corpuscular Volume 93.7 fL (78.0-98.0); Mean Platelet Volume 8.1 fL (7.4-10.4); Platelet Count 206 thou/uL (130-400); RBC Distribution Width 12.9 % (11.5-14.5); White Blood Cell (WBC) Count 10.7 thou/uL (4.8-10.8)
[2021-04-05 09:51] LABS: ALT (SGPT) 16 U/L (8-55); AST (SGOT) 24 U/L (5-34); Albumin 4.2 g/dL (3.4-4.8); Alkaline Phosphatase 100 U/L (40-110); Anion Gap 15 mmol/L (10-20); BUN (Urea Nitrogen) 11 mg/dL (9.8-20.1); Bilirubin, Total 0.8 mg/dL (0.2-1.2); Calc. Creatinine Clearance 0 mL/min (70-130); Calcium 9.3 mg/dL (7.8-10.44); Carbon Dioxide 22 mmol/L (23-31); Chloride 106 mmol/L (98-107); Globulin 4.1 g/dL (2.4-3.5); Glucose 93 mg/dL (83-110); Potassium 4.1 mmol/L (3.5-5.1); Protein, Total 8.3 g/dL (5.8-8.1); Sodium 139 mmol/L (136-145)
[2021-04-05] MEDS ORDERED: Cefepime 2 GM VIAL ONE (10:24)
[2021-04-05] MEDS ORDERED: Vancomycin 1.5 GRAM/300 ML BAG 1.5 GM in Premix Bag 1 BAG IVPB SCH (10:45)
[2021-04-05] MEDS ORDERED: Lidocaine 1% PF 5 ML VIAL ONE (11:53)
[2021-04-05 13:28] LABS: RBC Count-Automated (BF) 949 /cu.mm; WBC/Nucleated-Auto (BF) 14574 uL
[2021-04-05 13:30] LABS: BF Color Yellow; Body Fluid Source Synovial Fluid; Clarity Cloudy/Turbid (Clear); Tube # CUP
[2021-04-05 13:32] LABS: Lymphocytes 2 %
[2021-04-05 13:33] LABS: BF Segmented Neutrophils 91 %; Cell Count Non Hematic 7 %
[2021-04-05] MEDS: Nicotine 14 MG PATCH TD SCH (14:51)
[2021-04-05] MEDS: HYDROcodone/Acetaminophen 10/325 mg Tablet PO PRN ×2 (14:59→19:04)
[2021-04-05 16:00] VITALS: BMI 24.2
[2021-04-05 18:34] LABS: Amphetamine Not Detected (NotDetected); Cocaine Metabolite Screen Not Detected (NotDetected); Medtox Reader # READER 4; Methamphetamine Not Detected (NotDetected); Opiate Screen Not Detected (NotDetected); Phencyclidine (PCP) Not Detected (NotDetected); THC/Cannabinoid Screen Not Detected (NotDetected)
[2021-04-05 18:35] LABS: Barbiturates Screen Not Detected (NotDetected); Benzodiazepine Screen Not Detected (NotDetected); Medtox Control Line Valid? VALID (VALID); Methadone Not Detected (NotDetected); Oxycodone Screen Not Detected (NotDetected); Tricyclic Screen Not Detected (NotDetected)
[2021-04-05 18:50] LABS: SARS-CoV-2 PCR by NAA Not Detected (NotDetected)
[2021-04-05] MEDS: Atorvastatin Calcium 20 MG TAB PO SCH (20:24)
[2021-04-05] MEDS: Carvedilol 3.125 MG TAB PO SCH (20:24)
[2021-04-05] MEDS: Cefepime 2 GM in Sodium Chloride 0.9% 100 ML IVPB SCH (21:03)
[2021-04-06] MEDS: HYDROcodone/Acetaminophen 10/325 mg Tablet PO PRN ×2 (02:19→21:24)
[2021-04-06 05:58] LABS: Anion Gap 14 mmol/L (10-20); BUN (Urea Nitrogen) 17 mg/dL (9.8-20.1); Calc. Creatinine Clearance 50 mL/min (70-130); Carbon Dioxide 19 mmol/L (23-31); Chloride 109 mmol/L (98-107); Glucose 105 mg/dL (83-110); Potassium 3.9 mmol/L (3.5-5.1); Sodium 138 mmol/L (136-145)
[2021-04-06 06:08] LABS: Band 2 % (5-11); Lymphocytes 37 % (21-51); MDiff Complete? YES; Mean Corpuscular HGB CONC 34.5 g/dL (32.0-36.0); Mean Corpuscular Hemoglobin 32.4 pg (27.0-31.0); Mean Platelet Volume 8.1 fL (7.4-10.4); Monocytes 6 % (0-10); Neutrophil 55 % (42-75); Platelet Count 172 thou/uL (130-400); Platelet Morphology Comment Appears Adequate; RBC Distribution Width 12.8 % (11.5-14.5); RBC Morphology Normal; Red Blood Cell (RBC) Count 3.71 mill/uL (4.20-5.40); White Blood Cell (WBC) Count 7.6 thou/uL (4.8-10.8)
[2021-04-06] MEDS: MULTIVIT/IRON SULF/FOLIC ACID 1 EACH TAB PO SCH (08:12)
[2021-04-06] MEDS: Carvedilol 3.125 MG TAB PO SCH ×2 (08:13→21:23)
[2021-04-06] MEDS: Aspirin 81 mg Enteric Coated Tablet PO SCH ×3 (08:13→09:25)
[2021-04-06] MEDS: Amlodipine 5 MG TAB PO SCH (08:13)
[2021-04-06] MEDS: Clopidogrel Bisulfate 75 MG TAB PO SCH ×3 (08:14→09:25)
[2021-04-06] MEDS: Enoxaparin Sodium 40 MG/0.4 ML SYRINGE SC SCH (08:14)
[2021-04-06] MEDS: Lisinopril 10 MG TAB PO SCH (08:15)
[2021-04-06] MEDS: Cefepime 2 GM in Sodium Chloride 0.9% 100 ML IVPB SCH ×2 (09:25→21:23)
[2021-04-06] MEDS ORDERED: VANCOMYCIN 1.25 GM/250 ML BAG 1.25 GM in Premix Bag 1 BAG IVPB SCH (12:00)
[2021-04-06] MEDS: Nicotine 14 MG PATCH TD SCH (14:21)
[2021-04-06] MEDS: Atorvastatin Calcium 20 MG TAB PO SCH (21:23)
[2021-04-07 05:56] LABS: Hemoglobin 11.9 g/dL (12.0-16.0); Mean Corpuscular HGB CONC 33.2 g/dL (32.0-36.0); Mean Corpuscular Hemoglobin 30.9 pg (27.0-31.0); Mean Platelet Volume 8.1 fL (7.4-10.4); Platelet Count 189 thou/uL (130-400); RBC Distribution Width 12.7 % (11.5-14.5); Red Blood Cell (RBC) Count 3.86 mill/uL (4.20-5.40); White Blood Cell (WBC) Count 6.7 thou/uL (4.8-10.8)
[2021-04-07 06:11] LABS: Anion Gap 11 mmol/L (10-20); BUN (Urea Nitrogen) 16 mg/dL (9.8-20.1); Calc. Creatinine Clearance 51 mL/min (70-130); Calcium 9.1 mg/dL (7.8-10.44); Carbon Dioxide 20 mmol/L (23-31); Chloride 112 mmol/L (98-107); Glucose 99 mg/dL (83-110); Potassium 4.2 mmol/L (3.5-5.1); Sodium 139 mmol/L (136-145)
[2021-04-07 06:29] LABS: Eosinophils 3 % (0-10); Lymphocytes 55 % (21-51); MDiff Complete? YES; Metamyelocyte 2 % (0-0); Monocytes 4 % (0-10); Neutrophil 36 % (42-75); Platelet Morphology Comment Appears Adequate
[2021-04-07] MEDS: Carvedilol 3.125 MG TAB PO SCH (08:14)
[2021-04-07] MEDS: Amlodipine 5 MG TAB PO SCH (08:14)
[2021-04-07] MEDS: MULTIVIT/IRON SULF/FOLIC ACID 1 EACH TAB PO SCH (08:14)
[2021-04-07] MEDS: Lisinopril 10 MG TAB PO SCH (08:14)
[2021-04-07] MEDS: Aspirin 81 mg Enteric Coated Tablet PO SCH (08:14)
[2021-04-07] MEDS: Clopidogrel Bisulfate 75 MG TAB PO SCH (08:15)
[2021-04-07] MEDS: Enoxaparin Sodium 40 MG/0.4 ML SYRINGE SC SCH (08:15)
[2021-04-07] MEDS: HYDROcodone/Acetaminophen 10/325 mg Tablet PO PRN (08:17)
[2021-04-07 09:28] LABS: Bacteria/HPF None Seen HPF (None Seen); Bilirubin Negative (Negative); Blood, Urine Negative (Negative); Clarity Clear (Clear); Glucose, Urine (Dipstick) Normal (Negative); Ketone, Urine Negative (Negative); Leukocyte 500 Leu/uL (Negative); Nitrite Negative (Negative); Protein, Urine (Dipstick) 10 mg/dL (Neg-Trace); Specific Gravity, Urine 1.018 (1.002-1.036); Squamous Epithelial 0-3 HPF (0-3); Urobilinogen Normal mg/dL (Less than 2)
[2021-04-07 09:30] LABS: Urine Culture Reflex Yes Yes
[2021-04-07] MEDS ORDERED: cefTRIAXone\\ROCEPHIN 1 GM VIAL IM SCH (10:15)
[2021-04-07] MEDS ORDERED: CEFTRIAXONE ROCEPHIN IM SCH ×4 (10:30→12:00)
[2021-04-07] MEDS ORDERED: ADMIXTURE FEE IM SCH ×4 (10:30→12:00)
[2021-04-07] MEDS ORDERED: LIDOCAINE 1% IM SCH (11:00)
[2021-04-07 12:38] VITALS: BP 129/75; TEMP 97.7
[2021-04-07] MEDS ORDERED: Clotrimazole 2% 3 Day Vag Cr 22.2 GM TUBE VAG SCH (21:00)
== END 2021-04-07 12:29 | disposition home or self-care (01) | DRG 547 ==
LOC: ERS 08:17 → T4-A 12:37
PROVIDERS: ADMIT Family Medicine; ATTEND Family Medicine
PROC: 0R9M3ZZ Drainage of Left Elbow Joint, Percutaneous Approach (ICD-10-PCS; principal; 2021-04-05)
DX: M02.32 Reiter's disease, elbow (principal); M25.422 Effusion, left elbow; Z20.822 Contact with and (suspected) exposure to COVID-19; K21.9 Gastro-esophageal reflux disease without esophagitis; I10 Essential (primary) hypertension; I25.10 Atherosclerotic heart disease of native coronary artery without angina pectoris; E78.5 Hyperlipidemia, unspecified; G89.29 Other chronic pain; F17.210 Nicotine dependence, cigarettes, uncomplicated; N76.0 Acute vaginitis; I25.2 Old myocardial infarction; Z90.710 Acquired absence of both cervix and uterus; Z79.82 Long term (current) use of aspirin; Z79.899 Other long term (current) drug therapy; Z88.0 Allergy status to penicillin; Z95.5 Presence of coronary angioplasty implant and graft; Z89.422 Acquired absence of other left toe(s)
CPT/HCPCS: 20605; 36415; 80048; 80053; 80306; 81001; 82945; 84157; 85007; 85025; 85027; 85060; 85379; 85652; 86140; 87070; 87086; 87205; 87635; 89051; 89060; 93005; 96365; 96366; 96367; 96372; J0692; J0696; J1885; J3370; J3490; U0003; U0005

== ENCOUNTER 2021-04-21 01:27 | Emergency (ER) | payer MEDICARE, MEDICAID ==
[2021-04-21] MEDS ORDERED: HYDROcodone/Acetaminophen 5/325 mg Tablet ONE (02:14)
[2021-04-21] MEDS ORDERED: Acetaminophen 325 MG TAB ONE (02:15)
== END 2021-04-21 05:21 | disposition home or self-care (01) ==
LOC: ERS 01:27
DX: M25.461 Effusion, right knee (principal); M79.89 Other specified soft tissue disorders; M25.551 Pain in right hip; Z79.899 Other long term (current) drug therapy; Z79.82 Long term (current) use of aspirin; Z79.891 Long term (current) use of opiate analgesic; I10 Essential (primary) hypertension; K21.9 Gastro-esophageal reflux disease without esophagitis; I25.10 Atherosclerotic heart disease of native coronary artery without angina pectoris; E78.5 Hyperlipidemia, unspecified; I25.2 Old myocardial infarction; F17.210 Nicotine dependence, cigarettes, uncomplicated
CPT/HCPCS: 72170; 93005

== ENCOUNTER 2021-06-29 12:24 | Emergency (ER) | payer MEDICARE, OTHER ==
[2021-06-29] MEDS ORDERED: Ketorolac Tromethamine 30 MG/ML VIAL ONE (14:51)
[2021-06-29] MEDS ORDERED: Morphine 4 MG/ML VIAL ONE (14:51)
== END 2021-06-29 15:06 | disposition home or self-care (01) ==
LOC: ERS 12:24
DX: G89.29 Other chronic pain (principal); M54.5 Low back pain; L30.4 Erythema intertrigo; I10 Essential (primary) hypertension; E78.5 Hyperlipidemia, unspecified; K21.9 Gastro-esophageal reflux disease without esophagitis; I25.10 Atherosclerotic heart disease of native coronary artery without angina pectoris; I25.2 Old myocardial infarction; F17.210 Nicotine dependence, cigarettes, uncomplicated
CPT/HCPCS: 99283; J1885; J2270

== ENCOUNTER 2021-08-14 10:26 | Emergency (ER) | payer MEDICARE, OTHER ==
[2021-08-14 12:22] LABS: ALT (SGPT) 13 U/L (8-55); AST (SGOT) 20 U/L (5-34); Albumin 3.8 g/dL (3.4-4.8); Alkaline Phosphatase 81 U/L (40-110); Anion Gap 13 mmol/L (10-20); BUN (Urea Nitrogen) 8 mg/dL (9.8-20.1); Bilirubin, Total 0.4 mg/dL (0.2-1.2); Calc. Creatinine Clearance 0 mL/min (70-130); Calcium 9.1 mg/dL (7.8-10.44); Carbon Dioxide 22 mmol/L (23-31); Chloride 107 mmol/L (98-107); Globulin 3.8 g/dL (2.4-3.5); Glucose 98 mg/dL (83-110); Potassium 3.4 mmol/L (3.5-5.1); Protein, Total 7.6 g/dL (5.8-8.1); Sodium 139 mmol/L (136-145)
[2021-08-14 14:07] LABS: #Basophils 0.1 thou/uL (0.0-0.2); #Eosinphils 0.2 thou/uL (0.0-0.7); #Monocytes 0.5 thou/uL (0.11-0.59); #Neutrophils 3.7 thou/uL (1.40-6.50); %Basophils 1.3 % (0.0-1.0); %Eosinophils 2.9 % (0.0-10.0); %Lymphocytes 46.9 % (21.0-51.0); %Monocytes 6.3 % (0.0-10.0); %Neutrophils 42.7 % (42.0-75.0); Hemoglobin 13.3 g/dL (12.0-16.0); Mean Corpuscular HGB CONC 32.9 g/dL (32.0-36.0); Mean Corpuscular Hemoglobin 30.5 pg (27.0-31.0); Mean Corpuscular Volume 92.5 fL (78.0-98.0); Platelet Count 211 thou/uL (130-400); RBC Distribution Width 13.1 % (11.5-14.5); Red Blood Cell (RBC) Count 4.36 mill/uL (4.20-5.40); White Blood Cell (WBC) Count 8.6 thou/uL (4.8-10.8)
[2021-08-14 14:28] LABS: Lipase 46 U/L (8-78)
[2021-08-14] MEDS ORDERED: Morphine 4 MG/ML VIAL ONE (15:17)
[2021-08-14] MEDS ORDERED: Aspirin Chewable 81 MG TAB ONE (15:17)
== END 2021-08-14 18:00 | disposition home or self-care (01) ==
LOC: ERS 10:26
DX: R07.89 Other chest pain (principal); K21.9 Gastro-esophageal reflux disease without esophagitis; E78.5 Hyperlipidemia, unspecified; I10 Essential (primary) hypertension; I25.2 Old myocardial infarction; F17.210 Nicotine dependence, cigarettes, uncomplicated
CPT/HCPCS: 36415; 71045; 80053; 83690; 83735; 84484; 85025; 93005; 96374; J2270

== ENCOUNTER 2021-10-08 14:55 | Outpatient (CLI) | payer MEDICARE, OTHER | END 2021-10-08 14:56 | disposition home or self-care (01) | LOC: BICMAMMO 14:55 | PROVIDERS: ATTEND Family Medicine | DX: Z12.31 Encounter for screening mammogram for malignant neoplasm of breast (principal); Z98.890 Other specified postprocedural states | CPT/HCPCS: 77063; 77067 ==

== ENCOUNTER 2021-11-19 18:04 | Emergency (ER) | payer MEDICARE, OTHER ==
[2021-11-20 07:50] LABS: SARS-CoV-2 PCR by NAA Not Detected (NotDetected)
== END 2021-11-19 19:15 | disposition home or self-care (01) ==
LOC: ERS 18:04
DX: Z20.822 Contact with and (suspected) exposure to COVID-19 (principal); I10 Essential (primary) hypertension; K21.9 Gastro-esophageal reflux disease without esophagitis; E78.5 Hyperlipidemia, unspecified; I25.2 Old myocardial infarction; I25.10 Atherosclerotic heart disease of native coronary artery without angina pectoris; F17.210 Nicotine dependence, cigarettes, uncomplicated
CPT/HCPCS: U0003; U0005; 99283

== ENCOUNTER 2021-12-23 11:59 | Emergency (ER) | payer MEDICARE, OTHER ==
[2021-12-23 13:01] LABS: Bacteria/HPF 2+ HPF (None Seen); Bilirubin Negative (Negative); Blood, Urine Negative (Negative); Clarity Clear (Clear); Glucose, Urine (Dipstick) Normal (Negative); Ketone, Urine Negative (Negative); Leukocyte 500 Leu/uL (Negative); Nitrite Negative (Negative); Protein, Urine (Dipstick) Negative (Neg-Trace); RBC/HPF 0-3 HPF (0-3); Specific Gravity, Urine 1.006 (1.002-1.036); Squamous Epithelial 0-3 HPF (0-3); Urobilinogen Normal mg/dL (Less than 2); pH, Urine 5.5 (5.0-9.0)
[2021-12-23 13:34] LABS: #Basophils 0.1 thou/uL (0.0-0.2); #Eosinphils 0.3 thou/uL (0.0-0.7); #Lymphocytes 3.4 thou/uL (1.20-3.40); #Monocytes 0.6 thou/uL (0.11-0.59); #Neutrophils 3.2 thou/uL (1.40-6.50); %Basophils 0.9 % (0.0-1.0); %Eosinophils 4.4 % (0.0-10.0); %Lymphocytes 44.5 % (21.0-51.0); %Monocytes 7.5 % (0.0-10.0); %Neutrophils 42.8 % (42.0-75.0); Hemoglobin 13.1 g/dL (12.0-16.0); Mean Corpuscular HGB CONC 34.5 g/dL (32.0-36.0); Mean Corpuscular Hemoglobin 32.4 pg (27.0-31.0); Mean Platelet Volume 7.6 fL (7.4-10.4); Platelet Count 160 thou/uL (130-400); RBC Distribution Width 12.4 % (11.5-14.5); Red Blood Cell (RBC) Count 4.03 mill/uL (4.20-5.40); White Blood Cell (WBC) Count 7.5 thou/uL (4.8-10.8)
[2021-12-23 13:59] LABS: ALT (SGPT) 13 U/L (8-55); AST (SGOT) 22 U/L (5-34); Albumin 3.8 g/dL (3.4-4.8); Alkaline Phosphatase 80 U/L (40-110); Anion Gap 14 mmol/L (10-20); BUN (Urea Nitrogen) 11 mg/dL (9.8-20.1); Bilirubin, Total 0.6 mg/dL (0.2-1.2); Calc. Creatinine Clearance 0 mL/min (70-130); Carbon Dioxide 20 mmol/L (23-31); Chloride 107 mmol/L (98-107); Globulin 3.4 g/dL (2.4-3.5); Glucose 81 mg/dL (83-110); Lipase 38 U/L (8-78); Potassium 3.7 mmol/L (3.5-5.1); Protein, Total 7.2 g/dL (5.8-8.1); Sodium 137 mmol/L (136-145)
[2021-12-23] MEDS ORDERED: Ketorolac Tromethamine 30 MG/ML VIAL ONE (14:44)
== END 2021-12-23 15:12 | disposition home or self-care (01) ==
LOC: ERS 11:59
DX: N39.0 Urinary tract infection, site not specified (principal); I25.10 Atherosclerotic heart disease of native coronary artery without angina pectoris; E78.5 Hyperlipidemia, unspecified; I25.2 Old myocardial infarction; K21.9 Gastro-esophageal reflux disease without esophagitis; F17.210 Nicotine dependence, cigarettes, uncomplicated
CPT/HCPCS: 36415; 74176; 80053; 81003; 81015; 83690; 85025; 96372; J1885

== ENCOUNTER 2021-12-28 11:45 | Emergency (ER) | payer MEDICARE, OTHER ==
[2021-12-28 13:38] LABS: Bacteria/HPF 1+ HPF (None Seen); Bilirubin Negative (Negative); Blood, Urine Negative (Negative); Clarity Clear (Clear); Glucose, Urine (Dipstick) Normal (Negative); Ketone, Urine Negative (Negative); Leukocyte 500 Leu/uL (Negative); Nitrite Negative (Negative); Protein, Urine (Dipstick) Negative (Neg-Trace); Specific Gravity, Urine 1.008 (1.002-1.036); Squamous Epithelial 0-3 HPF (0-3); Urobilinogen Normal mg/dL (Less than 2)
[2021-12-28 14:03] LABS: #Eosinphils 0.2 thou/uL (0.0-0.7); #Lymphocytes 3.4 thou/uL (1.20-3.40); #Monocytes 0.5 thou/uL (0.11-0.59); #Neutrophils 3.1 thou/uL (1.40-6.50); %Basophils 0.6 % (0.0-1.0); %Eosinophils 3.3 % (0.0-10.0); %Lymphocytes 46.6 % (21.0-51.0); %Monocytes 6.4 % (0.0-10.0); Hemoglobin 13.3 g/dL (12.0-16.0); Mean Corpuscular HGB CONC 33.1 g/dL (32.0-36.0); Mean Corpuscular Hemoglobin 31.5 pg (27.0-31.0); Mean Corpuscular Volume 94.9 fL (78.0-98.0); Mean Platelet Volume 7.4 fL (7.4-10.4); Platelet Count 211 thou/uL (130-400); RBC Distribution Width 12.3 % (11.5-14.5); Red Blood Cell (RBC) Count 4.23 mill/uL (4.20-5.40); White Blood Cell (WBC) Count 7.2 thou/uL (4.8-10.8)
[2021-12-28 14:27] LABS: ALT (SGPT) 13 U/L (8-55); AST (SGOT) 22 U/L (5-34); Albumin 4.1 g/dL (3.4-4.8); Alkaline Phosphatase 90 U/L (40-110); Anion Gap 14 mmol/L (10-20); BUN (Urea Nitrogen) 11 mg/dL (9.8-20.1); Bilirubin, Total 0.6 mg/dL (0.2-1.2); Calc. Creatinine Clearance 0 mL/min (70-130); Carbon Dioxide 23 mmol/L (23-31); Chloride 107 mmol/L (98-107); Globulin 3.5 g/dL (2.4-3.5); Glucose 88 mg/dL (83-110); Lipase 58 U/L (8-78); Potassium 3.7 mmol/L (3.5-5.1); Protein, Total 7.6 g/dL (5.8-8.1); Sodium 140 mmol/L (136-145)
[2021-12-28] MEDS ORDERED: Ketorolac Tromethamine 30 MG/ML VIAL ONE (14:51)
== END 2021-12-28 15:00 | disposition home or self-care (01) ==
LOC: ERS 11:45
DX: R11.0 Nausea (principal); R19.7 Diarrhea, unspecified; T36.1X5A Adverse effect of cephalosporins and other beta-lactam antibiotics, initial encounter; B37.9 Candidiasis, unspecified; M54.50 Low back pain, unspecified; G89.29 Other chronic pain; K21.9 Gastro-esophageal reflux disease without esophagitis; I10 Essential (primary) hypertension; I25.10 Atherosclerotic heart disease of native coronary artery without angina pectoris; E78.5 Hyperlipidemia, unspecified; I25.2 Old myocardial infarction; F17.210 Nicotine dependence, cigarettes, uncomplicated; Z79.899 Other long term (current) drug therapy
CPT/HCPCS: 36415; 70450; 80053; 81003; 81015; 83690; 85025; 87086; 96372; J1885

== ENCOUNTER 2022-04-29 09:40 | Outpatient (CLI) | payer MEDICARE, OTHER | END 2022-04-29 09:41 | disposition home or self-care (01) | LOC: BICULT 09:40 | PROVIDERS: ATTEND Physician Assistant Medical | DX: R10.13 Epigastric pain (principal); R14.0 Abdominal distension (gaseous); Z90.49 Acquired absence of other specified parts of digestive tract | CPT/HCPCS: 76705 ==

== ENCOUNTER 2022-05-21 14:53 | Emergency (ER) | payer MEDICARE, OTHER | END 2022-05-21 15:25 | disposition home or self-care (01) | LOC: ERS 14:53 | DX: N76.0 Acute vaginitis (principal); B37.2 Candidiasis of skin and nail; K21.9 Gastro-esophageal reflux disease without esophagitis; I10 Essential (primary) hypertension; E78.5 Hyperlipidemia, unspecified; I25.2 Old myocardial infarction; F17.210 Nicotine dependence, cigarettes, uncomplicated | CPT/HCPCS: 99282 ==

== ENCOUNTER 2022-08-07 09:43 | Emergency (ER) | payer OTHER ==
[2022-08-07] MEDS ORDERED: Dexameth. Sod Phosp. 10 MG/ML (CHEMO USE ONLY) ONE (12:01)
== END 2022-08-07 12:31 | disposition home or self-care (01) ==
LOC: ERS 09:43
DX: R21 Rash and other nonspecific skin eruption (principal); G89.29 Other chronic pain; M54.50 Low back pain, unspecified; K21.9 Gastro-esophageal reflux disease without esophagitis; I10 Essential (primary) hypertension; I25.10 Atherosclerotic heart disease of native coronary artery without angina pectoris; I25.2 Old myocardial infarction; E78.5 Hyperlipidemia, unspecified; F17.210 Nicotine dependence, cigarettes, uncomplicated
CPT/HCPCS: 36416; 99283; J1100

== ENCOUNTER 2022-09-26 08:07 | Emergency (ER) | payer OTHER ==
[2022-09-26] MEDS ORDERED: Ketorolac Tromethamine 30 MG/ML VIAL ONE (10:20)
[2022-09-26 17:34] LABS: Chlamydia by PCR Not Detected (NotDetected); GC by PCR Not Detected (NotDetected)
== END 2022-09-26 10:56 | disposition home or self-care (01) ==
LOC: ERS 08:07
DX: B37.31 Acute candidiasis of vulva and vagina (principal); I10 Essential (primary) hypertension; K21.9 Gastro-esophageal reflux disease without esophagitis; I25.10 Atherosclerotic heart disease of native coronary artery without angina pectoris; E78.5 Hyperlipidemia, unspecified; F17.210 Nicotine dependence, cigarettes, uncomplicated; Z79.899 Other long term (current) drug therapy
CPT/HCPCS: 87480; 87491; 87510; 87591; 87660; 96372; 99283; J1885

== ENCOUNTER 2022-12-06 13:09 | Emergency (ER) | payer OTHER ==
[2022-12-06] MEDS ORDERED: Ibuprofen 800 MG TAB ONE (13:55)
[2022-12-06 14:16] LABS: Hemoglobin 13.2 g/dL (12.0-16.0); Mean Corpuscular HGB CONC 35.5 g/dL (32.0-36.0); Mean Corpuscular Hemoglobin 32.4 pg (27.0-31.0); Mean Corpuscular Volume 91.2 fl (78.0-98.0); Mean Platelet Volume 8.1 fL (7.4-10.4); Platelet Count 191 10x3/uL (130-400); RBC Distribution Width 12.8 % (11.5-14.5); Red Blood Cell (RBC) Count 4.07 mill/uL (4.20-5.40); White Blood Cell (WBC) Count 7.1 10x3/uL (4.8-10.8)
[2022-12-06 14:34] LABS: ALT (SGPT) 7 U/L (8-55); AST (SGOT) 22 U/L (5-34); Alkaline Phosphatase 81 U/L (40-110); Anion Gap 11 mmol/L (10-20); BUN (Urea Nitrogen) 11 mg/dL (9.8-20.1); Bilirubin, Total 0.5 mg/dL (0.2-1.2); Calc. Creatinine Clearance 0 mL/min (70-130); Calcium 8.9 mg/dL (7.8-10.44); Carbon Dioxide 24 mmol/L (23-31); Chloride 108 mmol/L (98-107); Estimated GFR 62; Globulin 3.8 g/dL (2.4-3.5); Glucose 97 mg/dL (83-110); Potassium 2.8 mmol/L (3.5-5.1); Protein, Total 7.8 g/dL (5.8-8.1); Sodium 140 mmol/L (136-145)
[2022-12-06 14:40] LABS: Eosinophils 1 % (0-10); Lymphocytes 46 % (21-51); MDiff Complete? YES; Monocytes 5 % (0-10); Neutrophil 38 % (42-75); Platelet Morphology Comment Appears Adequate; RBC Morphology Normal; Reactive Lymphocytes 10 % (0-10)
[2022-12-06] MEDS ORDERED: Potassium Chloride 20 MEQ TAB ONE (15:09)
== END 2022-12-06 15:53 | disposition home or self-care (01) ==
LOC: ERS 13:09
DX: E87.6 Hypokalemia (principal); I10 Essential (primary) hypertension; E78.5 Hyperlipidemia, unspecified; K21.9 Gastro-esophageal reflux disease without esophagitis; Z79.899 Other long term (current) drug therapy; Z79.82 Long term (current) use of aspirin
CPT/HCPCS: 36415; 80053; 84484; 85025; 93005

== ENCOUNTER 2022-12-31 12:54 | Outpatient (CLI) | payer OTHER | END 2022-12-31 12:55 | disposition home or self-care (01) | PROVIDERS: ATTEND Family Medicine | DX: M54.9 Dorsalgia, unspecified (principal); G89.29 Other chronic pain; M48.02 Spinal stenosis, cervical region ==

== ENCOUNTER 2023-01-22 18:30 | Emergency (ER) | payer OTHER ==
[2023-01-22] MEDS ORDERED: Gabapentin 300 MG CAP PO SCH (22:15)
== END 2023-01-22 22:54 | disposition home or self-care (01) ==
LOC: ERS 18:30
DX: M54.2 Cervicalgia (principal); G62.9 Polyneuropathy, unspecified; M62.838 Other muscle spasm; I10 Essential (primary) hypertension; E78.5 Hyperlipidemia, unspecified; K21.9 Gastro-esophageal reflux disease without esophagitis
CPT/HCPCS: 99283

== ENCOUNTER 2023-01-26 12:21 | Emergency (ER) | payer OTHER ==
[2023-01-26] MEDS ORDERED: Ketorolac Tromethamine 30 MG/ML VIAL ONE (15:27)
[2023-01-26] MEDS ORDERED: predniSONE 20 MG TAB ONE (15:27)
== END 2023-01-26 15:54 | disposition home or self-care (01) ==
LOC: ERS 12:21
DX: L27.0 Generalized skin eruption due to drugs and medicaments taken internally (principal); T42.6X5A Adverse effect of other antiepileptic and sedative-hypnotic drugs, initial encounter; M62.838 Other muscle spasm; I10 Essential (primary) hypertension; E78.5 Hyperlipidemia, unspecified; K21.9 Gastro-esophageal reflux disease without esophagitis; Z87.891 Personal history of nicotine dependence; M19.90 Unspecified osteoarthritis, unspecified site
CPT/HCPCS: 99283; J1885; J7512

== ENCOUNTER 2023-11-08 15:19 | Emergency (ER) | payer OTHER ==
[2023-11-08] MEDS ORDERED: Acetaminophen 500 MG TAB ONE (15:54)
[2023-11-08] MEDS ORDERED: Ketorolac Tromethamine 30 MG/ML VIAL ONE (18:43)
== END 2023-11-08 18:47 | disposition home or self-care (01) ==
LOC: ERS 15:19
DX: S16.1XXA Strain of muscle, fascia and tendon at neck level, initial encounter (principal); R03.0 Elevated blood-pressure reading, without diagnosis of hypertension; F17.210 Nicotine dependence, cigarettes, uncomplicated; I10 Essential (primary) hypertension; V43.53XA Car driver injured in collision with pick-up truck in traffic accident, initial encounter
CPT/HCPCS: 72125; 96372; J1885

== ENCOUNTER 2024-04-03 16:15 | Emergency (ER) | payer OTHER ==
[2024-04-03] MEDS ORDERED: Ketorolac Tromethamine 30 MG (1 mL) VIAL ONE (16:47)
[2024-04-03] MEDS ORDERED: Lidocaine 4% Patch TD SCH (17:00)
[2024-04-04] MEDS ORDERED: Transdermal Patch Removal TOP SCH (05:00)
== END 2024-04-03 18:04 | disposition home or self-care (01) ==
LOC: ERS 16:15
DX: M25.512 Pain in left shoulder (principal); M25.522 Pain in left elbow; M54.50 Low back pain, unspecified; I10 Essential (primary) hypertension; F17.210 Nicotine dependence, cigarettes, uncomplicated; W01.0XXA Fall on same level from slipping, tripping and stumbling without subsequent striking against object, initial encounter
CPT/HCPCS: 96372; J1885

== ENCOUNTER 2024-05-07 01:00 | Emergency (ER) | payer OTHER ==
[2024-05-07] MEDS ORDERED: predniSONE 20 MG TAB ONE ×2 (02:06)
[2024-05-07] MEDS ORDERED: Ketorolac Tromethamine 30 MG (1 mL) VIAL ONE (02:06)
== END 2024-05-07 02:45 | disposition home or self-care (01) ==
LOC: ERS 01:00
DX: M54.2 Cervicalgia (principal); I10 Essential (primary) hypertension; F17.210 Nicotine dependence, cigarettes, uncomplicated
CPT/HCPCS: 96372; 99283; J1885; J7512

== ENCOUNTER 2024-05-16 09:30 | Emergency (ER) | payer OTHER ==
[2024-05-16] MEDS ORDERED: Ketorolac Tromethamine 30 MG (1 mL) VIAL ONE (09:58)
[2024-05-16] MEDS ORDERED: Acetaminophen 325 MG TAB ONE (09:58)
== END 2024-05-16 10:21 | disposition home or self-care (01) ==
LOC: ERS 09:30
DX: M54.2 Cervicalgia (principal); I10 Essential (primary) hypertension; F17.210 Nicotine dependence, cigarettes, uncomplicated
CPT/HCPCS: 96372; 99283; J1885

== ENCOUNTER 2024-05-17 06:49 | Emergency (ER) | payer OTHER ==
[2024-05-17] MEDS ORDERED: Ketorolac Tromethamine 30 MG (1 mL) VIAL ONE (07:22)
[2024-05-17] MEDS ORDERED: Lidocaine 4% Patch TD SCH (07:30)
[2024-05-17] MEDS ORDERED: Ketorolac Tromethamine 30 MG (1 mL) VIAL IVP SCH (07:30)
[2024-05-17] MEDS ORDERED: Transdermal Patch Removal TOP SCH (21:00)
== END 2024-05-17 08:14 | disposition home or self-care (01) ==
LOC: ERS 06:49
DX: G89.29 Other chronic pain (principal); M54.2 Cervicalgia; F17.210 Nicotine dependence, cigarettes, uncomplicated; I10 Essential (primary) hypertension
CPT/HCPCS: 96372; 99282; J1885

== ENCOUNTER 2024-05-19 11:16 | Outpatient (CLI) | payer OTHER | END 2024-05-19 11:17 | disposition home or self-care (01) | LOC: BICMAMMO 11:16 | PROVIDERS: ATTEND Family Medicine | DX: Z12.31 Encounter for screening mammogram for malignant neoplasm of breast (principal); Z91.89 Other specified personal risk factors, not elsewhere classified | CPT/HCPCS: 77063; 77067 ==